=== PATIENT | female | born 1970 | race Caucasian/White ===

== ENCOUNTER → 2018-12-15 | Outpatient (CLI) | payer OTHER, SELFPAY ==
[2016-12-13 10:45] VITALS: BMI 38.4
[2018-12-15 17:31] LABS: Absolute Lymphocyte Count 2.43 X10^3/ul (0.83-4.51); Absolute Neutrophil Count 4.7 X10^3/uL (2.0-7.7); Basophil# 0.02 X10^3/uL; Basophil% 0.3 % (0-1); Eosinophil# 0.11 X10^3/uL; Eosinophils% 1.4 % (0-5); Hematocrit 40.4 % (37-47); Hemoglobin 13.7 g/dl (12.0-15.0); Lymphocyte # 2.43 X10^3/ul (4.0); Lymphocyte % 30.7 % (19-41); Mean Corp Hgb Conc 33.9 g/gl (32-36); Mean Corpuscular Volume 91.4 fL (81-99); Mean Platelet Vol. 10.5 fl (6.2-12.0); Monocyte# 0.63 X10^3/uL; Neutrophil % 59.3 % (47-70); Platelet Count 219 K/mm3 (150-450); RBC Distribution Width CV 12.5 % (11.6-14.6); RBC Distribution Width SD 40.8 fl (35.1-43.9); Red Blood Count 4.42 M/mm3 (4.2-5.4); White Blood Count 7.9 K/mm3 (4.4-11.0)
[2018-12-15 17:34] LABS: POSITIVE COUNT NO; POSITIVE DIFFERENTIAL NO; POSITIVE MORPHOLOGY NO
[2018-12-15 18:07] LABS: ALB/GLOB Ratio 0.9 RATIO (0.9-2.4); AST(SGOT) 17 U/L (15-37); Alanine Aminotransfer ALT/SGPT 26 U/L (13-56); Albumin, Serum 3.6 g/dL (3.2-5.0); Alkaline Phosphatase 77 U/L (45-117); Anion Gap 7 (5-15); BUN 17 mg/dL (7-18); BUN/Creat Ratio 20.4 RATIO (10-20); Calcium,Total 8.8 mg/dL (8.5-10.1); Chloride 105 mmol/L (98-107); Creatinine, Serum 0.84 mg/dL (0.55-1.02); EST Glomerular Filtration Rate 78 mL/min (>60); Est Glom Filt Rate - Afr Amer 94 mL/min (>60); Globulin 3.9 g/dL (2.2-4.2); Glucose 109 mg/dL (74-106); Protein, Total 7.5 g/dL (6.4-8.2); Sodium Level 140 mmol/L (136-145); Thyroid Stim Hormone (TSH) 1.15 uIU/mL (0.358-3.74)
== END | disposition home or self-care (01) ==
LOC: MFPLAB 15:26
PROVIDERS: Family Provider Family Medicine; PCP Family Medicine; Visit Provider Family Medicine
DX: R55 Syncope and collapse (principal); E66.9 Obesity, unspecified
CPT/HCPCS: 36415; 80053; 84443; 85025

== ENCOUNTER → 2019-06-19 11:57 | Outpatient (CLI) | payer OTHER, SELFPAY ==
[2016-12-13 10:45] VITALS: BMI 38.4
[2019-06-19 14:34] LABS: AST(SGOT) 20 U/L (15-37); Alanine Aminotransfer ALT/SGPT 31 U/L (13-56); Albumin, Serum 3.8 g/dL (3.2-5.0); Alkaline Phosphatase 78 U/L (45-117); Anion Gap 4 (5-15); BUN 13 mg/dL (7-18); BUN/Creat Ratio 11.9 RATIO (10-20); Calcium,Total 9.4 mg/dL (8.5-10.1); Chloride 107 mmol/L (98-107); Creatinine, Serum 1.09 mg/dL (0.55-1.02); EST Glomerular Filtration Rate 57 mL/min (>60); Est Glom Filt Rate - Afr Amer 69 mL/min (>60); Glucose 90 mg/dL (74-106); Potassium 4.5 mmol/L (3.5-5.1); Protein, Total 7.8 g/dL (6.4-8.2); Sodium Level 138 mmol/L (136-145)
== END ==
PROVIDERS: Family Provider Family Medicine; PCP Family Medicine; Referring Provider Family Medicine; Visit Provider Family Medicine
DX: L29.9 Pruritus, unspecified (principal)
CPT/HCPCS: 36415; 80053; 82140

== ENCOUNTER → 2019-08-04 | Outpatient (CLI) | payer OTHER, SELFPAY ==
[2019-08-04 14:39] VITALS: BMI 38.4
[2019-08-04 15:48] LABS: Thyroid Stim Hormone (TSH) 1.13 uIU/mL (0.358-3.74)
== END | disposition home or self-care (01) ==
LOC: PAVLAB 15:09
PROVIDERS: PCP Family Medicine; Referring Provider Nurse Practitioner Women's Health; Visit Provider Nurse Practitioner Women's Health
DX: R23.2 Flushing (principal)
CPT/HCPCS: 36415; 84443

== ENCOUNTER → 2019-08-14 | Outpatient (CLI) | payer OTHER, SELFPAY ==
[2019-08-04 14:39] VITALS: BMI 38.4
--- NOTE | 2019-08-14 07:00 | BI_ITS ---
MAMMOGRAPHY - BILATERAL SCREENING REASON FOR EXAM: Female, 49 years old. Routine annual screening examination. PERTINENT HISTORY: Non-contributory. TECHNIQUE: Digital bilateral breast zack (3D mammographic acquisition) in the CC and MLO projections. 2-D mediolateral oblique (MLO) and craniocaudad (CC) views of both breasts were obtained. CAD: Full Field Digital Mammography with Computer Added Detection was performed. COMPARISON: Comparison is made with prior examination dated July 13, 2013. FINDINGS: Breast Composition: The breasts are heterogeneously dense, which may obscure small masses. There are no dominant masses or suspicious calcifications. There is a 1.3 cm x 1.3 cm well-defined nodule in the upper lateral portion of the right breast. This has decreased in size as compared to prior study. Correlation with ultrasound is recommended. No other significant abnormalities are identified. BI/SCREEN MAMM (CAD) W/ZACK BILAT IMPRESSION: Decreased size of the nodular density in the upper-outer quadrant of the right breast. Repeat ultrasound is recommended for further follow-up. ASSESSMENT CATEGORY: BIRADS Category 0: Incomplete. Need additional imaging evaluation. A letter regarding these results will be sent to the patient by the facility within 30 days. Approximately 10% of breast cancers are not detected by mammography. A normal mammogram should not delay biopsy of a clinically suspicious abnormality. [id number] Electronically Signed: Tung Mas, at 10:06 EST , Service support ,
== END | disposition home or self-care (01) ==
PROVIDERS: PCP Family Medicine; Referring Provider Nurse Practitioner Women's Health; Visit Provider Nurse Practitioner Women's Health
DX: Z12.31 Encounter for screening mammogram for malignant neoplasm of breast (principal)
CPT/HCPCS: 77063; 77067

== ENCOUNTER → 2019-08-18 | Outpatient (CLI) | payer OTHER, SELFPAY ==
[2019-08-04 14:39] VITALS: BMI 38.4
--- NOTE | 2019-08-18 10:52 | US_ITS ---
STUDY: ULTRASOUND BREAST - RIGHT REASON FOR EXAM: Female, 49 years old. Abnormal screening mammogram. TECHNIQUE: Axial and longitudinal images of the RIGHT breast were performed with a high resolution ultrasound transducer. # OF IMAGES: 62 COMPARISON: Comparison is made with prior mammogram dated August 14, 2019 and prior ultrasound of the right breast dated July 20, 2013. FINDINGS: RIGHT Breast: 4 cysts are seen at T10-11 and 12:00 radians. These each measure less than 1 cm. There is a 1 cm x 0.9 cm x 1 cm spiculated nodule with posterior shadowing at the 9:00 position of the breast at 6 cm from the nipple. A similar appearing nodular density at the 11:00 position breast at 3 cm from nipple measuring 4 mm x 6 mm x 4 mm is seen as well. Biopsy recommended. US/Breast Limited Unilateral IMPRESSION: Biopsy recommended of 2 suspicious lesion at the 9:00 position of the breast at 6 cm from nipple as well as at the 9:00 position of the breast at 3 cm from nipple. ASSESSMENT CATEGORY: BIRADS Category 4: Suspicious - Biopsy Should Be Considered. A letter regarding these results will be sent to the patient by the facility within 30 days. Electronically Signed: Tung Mas, at 14:45 EDT , Service support ,
== END | disposition home or self-care (01) ==
PROVIDERS: PCP Family Medicine; Referring Provider Nurse Practitioner Women's Health; Visit Provider Nurse Practitioner Women's Health
DX: R92.8 Other abnormal and inconclusive findings on diagnostic imaging of breast (principal)
CPT/HCPCS: 76642

== ENCOUNTER → 2019-08-31 | Outpatient (CLI) | payer OTHER, SELFPAY ==
[2019-08-25 08:03] VITALS: BMI 38.4
--- NOTE | 2019-08-31 09:13 | US_ITS ---
STUDY: ULTRASOUND BREAST - RIGHT REASON FOR EXAM: Female, 49 years old. Ultrasound guided biopsy of the right breast mass. TECHNIQUE: Axial and longitudinal images of the RIGHT breast were performed with a high resolution ultrasound transducer. # OF IMAGES: 32 COMPARISON: Comparison is made with prior ultrasound of the right breast dated August 18, 2019. FINDINGS: RIGHT Breast: Under direct sonographic guidance, the surgeon performed 4 core biopsies of the 1.1 cm x 0.9 cm x 0.9 cm irregular hypoechoic solid nodule at the 9:00 position of the breast at 6 cm from the nipple. US/US Breast Biopsy 1st Lesion IMPRESSION: Successful ultrasound-guided biopsy of the suspicious nodule at the 9:00 position of the breast is 6 cm from the nipple. ASSESSMENT CATEGORY: BIRADS Category 4: Suspicious - Biopsy Should Be Considered. A letter regarding these results will be sent to the patient by the facility within 30 days. Electronically Signed: Tung Mas, at 10:40 EDT , Service support ,
--- NOTE | 2019-08-31 09:30 | BRBX_PTH ---
PATIENT: SESAR CISNEROS LOC: [facility] U#:[id number] AGE/SX: 49/F ROOM: RE08/31/[address]: Dr. Kobe Joseph MD : 1970 BED: DIS: 08/31/2019 SPEC #: [id number] RECD: 08/31/19 10:37 STATUS: ALFRED SURESH #: [id number] ROMÁN: 08/31/19 09:[address]: oKbe Joseph DEPT: SURGICAL PATHOLOGY RECD BY: Juan Borden ENTERED: 08/31/19 11:49 SP TYPE: BREAST BX OTHR DR: Dr. Akash Connell MD Tissues: Right breast, NOS Procedures: Surgery Specimen Level IV HEADER OPERATION: Right breast biopsy PRE-OP DIAGNOSIS: Right breast abnormal ultrasound TISSUE SUBMITTED: Right breast at 9 o'clock, 6 cm from nipple MICROSCOPIC DIAGNOSIS Right breast at 9 o'clock, ultrasound-guided needle core biopsy: Fibrocystic change, nonproliferative. Focal intraductal hyperplasia without atypia. No evidence of malignancy. CATERINA:peggy 09/01/19 MICROSCOPIC DESCRIPTION Slides are reviewed. GROSS DESCRIPTION Received in fixative is one container labeled with the patient's name and designated right breast. The specimen consists of multiple elongated fragments of jackson-yellow fibroadipose tissue that in aggregate measure 2 x 1 x 0.2 cm. The entire specimen is submitted in one cassette. / CATERINA:peggy 08/31/19 TC:5 CPT: 71305
--- NOTE | 2019-08-31 10:11 | PCM.OPRPT ---
Problem List (1) Abnormal mammogram of right breast Status: Acute Report of Operation Date of Procedure: 08/31/19 Pre-Operative Diagnosis: Abnormal mammogram right Post-Operative Diagnosis: Same Surgery/Procedure Performed:: Ultrasound-guided handheld mammotome breast biopsy right Type of Anesthesia:: Local Estimated Blood Loss (mL): < 5 cc Description of Procedure: Patient was in the supine position. Ultrasound at the 9 o'clock position revealed the lesion in question. The breast was prepped with chlorhexidine. 1% lidocaine plain was injected. Local was injected posterior to the lesion using ultrasound guidance. Skin frida was made. Hand-held mammotome needle was placed posterior to the lesion. Numerous biopsies were obtained under ultrasound guidance. Under ultrasound guidance a small titanium clip was placed. Sterile dressings were applied. The patient tolerated the procedure well. - Admit VTE Documentation VTE Present on Admission: No VTE Mechan Device Prophylaxis: None VTE Pharm Prophylaxis ordered?: No Reason prophylaxis not ordered:: Treatment Not Indicated
== END | disposition home or self-care (01) ==
LOC: OPUS 09:10
PROVIDERS: PCP Family Medicine; Referring Provider Surgery; Visit Provider Surgery
DX: R92.8 Other abnormal and inconclusive findings on diagnostic imaging of breast (principal)
CPT/HCPCS: 19083; 88305

== ENCOUNTER → 2020-02-10 08:53 | Outpatient (CLI) | payer OTHER, SELFPAY ==
[2019-08-25 08:03] VITALS: BMI 38.4
--- NOTE | 2020-02-10 08:54 | BI_ITS ---
MAMMOGRAPHY - UNILATERAL DIAGNOSTIC: RIGHT BREAST REASON FOR EXAM: Female, 49 years old. Six-month follow-up for right breast biopsy. PERTINENT HISTORY: Non-contributory. TECHNIQUE: Digital unilateral breast lillian (3D mammographic acquisition) in the CC and MLO projections. 2-D mediolateral oblique (MLO) and craniocaudad (CC) views of both breasts were obtained. CAD: Full Field Digital Mammography with Computer Added Detection was performed. COMPARISON: Comparison is made with prior mammogram dated 08/14/2019 and 07/13/2013. FINDINGS: Breast Composition: The breasts are heterogeneously dense, which may obscure small masses. There are no dominant masses or suspicious calcifications. Since prior study, the patient underwent biopsy with tissue clip marker seen in the upper lateral portion of the right breast. No other significant abnormalities are identified. There has been no significant change since the prior study. BI/DIAG MAMM W/CAD, UNILAT IMPRESSION: Status post right breast biopsy in the superior lateral portion of the right breast. One year follow-up mammogram recommended. (A) ASSESSMENT CATEGORY: BIRADS Category 2: Benign. A letter regarding these results will be sent to the patient by the facility within 30 days. Approximately 10% of breast cancers are not detected by mammography. A normal mammogram should not delay biopsy of a clinically suspicious abnormality. Electronically Signed: Tung Mas, at 10:29 EDT , Service support ,
--- NOTE | 2020-02-10 08:54 | US_ITS ---
STUDY: ULTRASOUND BREAST - RIGHT REASON FOR EXAM: Female, 49 years old. Six-month follow-up for prior breast biopsy. TECHNIQUE: Axial and longitudinal images of the RIGHT breast were performed with a high resolution ultrasound transducer. # OF IMAGES: 13 COMPARISON: Comparison is made with prior mammogram done earlier in the day and prior ultrasound of the right breast dated 08/18/2019. FINDINGS: RIGHT Breast: This is an 8 mm by 8mm by 8mm irregular hypoechoic nodule at the 9 o''clock position of the breast or 6 cm from the nipple. This was previously biopsied. A tissue clip marker is seen. US/Breast Limited Unilateral IMPRESSION: Stable nodular density. Tissue clip marker is seen within it. ASSESSMENT CATEGORY: BIRADS Category 2: Benign. A letter regarding these results will be sent to the patient by the facility within 30 days. Electronically Signed: Tung Mas, at 14:10 EDT , Service support ,
== END ==
PROVIDERS: PCP Family Medicine; Referring Provider Surgery; Visit Provider Surgery
DX: R92.8 Other abnormal and inconclusive findings on diagnostic imaging of breast (principal)
CPT/HCPCS: 76642; 77061; 77065; G0279

== ENCOUNTER → 2020-12-23 15:16 | Outpatient (CLI) | payer OTHER, SELFPAY ==
[2020-10-19 13:38] VITALS: BMI 43.2
[2020-12-23 17:31] LABS: Absolute Lymphocyte Count 2.37 X10^3/uL (0.83-4.51); Absolute Neutrophil Count 4.9 X10^3/uL (2.0-7.7); Basophil# 0.05 X10^3/uL; Basophil% 0.6 % (0-1); Eosinophils% 1.2 % (0-5); Lymphocyte # 2.37 X10^3/ul (0.83-4.51); Lymphocyte % 28.9 % (19-41); Mean Corp Hgb Conc 33.3 g/dL (32-36); Mean Corpuscular Hgb 31.7 pg (27.0-32.0); Mean Platelet Vol. 10.3 fl (6.2-12.0); Monocyte# 0.74 X10^3/uL; NRBC Flagged by Analyzer 0 % (0-5); Neutrophil # 4.93 X10^3/uL (2.7-7.7); Neutrophil % 60.1 % (47-70); Platelet Count 291 K/mm3 (150-450); RBC Distribution Width CV 11.9 % (11.6-14.6); RBC Distribution Width SD 41.5 fl (35.1-43.9); Red Blood Count 4.42 M/mm3 (4.2-5.4); White Blood Count 8.2 K/mm3 (4.4-11.0)
[2020-12-23 17:56] LABS: AST(SGOT) 19 U/L (15-37); Alanine Aminotransfer ALT/SGPT 34 U/L (13-56); Albumin, Serum 3.9 g/dL (3.2-5.0); Alkaline Phosphatase 95 U/L (45-117); Anion Gap 9 (5-15); BUN 13 mg/dL (7-18); BUN/Creat Ratio 13.1 RATIO (10-20); Calcium,Total 9.3 mg/dL (8.5-10.1); Chloride 102 mmol/L (98-107); Creatinine, Serum 0.99 mg/dL (0.55-1.02); EST Glomerular Filtration Rate 63 mL/min (>60); Est Glom Filt Rate - Afr Amer 76 mL/min (>60); Globulin 3.9 g/dL (2.2-4.2); Glucose 86 mg/dL (74-106); Potassium 4.1 mmol/L (3.5-5.1); Protein, Total 7.8 g/dL (6.4-8.2); Sodium Level 138 mmol/L (136-145)
== END ==
PROVIDERS: PCP Family Medicine; Visit Provider Registered Nurse
DX: Z01.818 Encounter for other preprocedural examination (principal)
CPT/HCPCS: 36415; 80053; 85025

== ENCOUNTER → 2021-02-27 07:53 | Outpatient (CLI) | payer OTHER, SELFPAY ==
[2020-10-19 13:38] VITALS: BMI 43.2
--- NOTE | 2021-02-27 07:55 | BI_ITS ---
MAMMOGRAPHY - BILATERAL SCREENING REASON FOR EXAM: Female, 50 years old. Routine annual screening examination. PERTINENT HISTORY: Non-contributory. TECHNIQUE: Digital bilateral breast zack (3D mammographic acquisition) in the CC and MLO projections. 2-D mediolateral oblique (MLO) and craniocaudad (CC) views of both breasts were obtained. CAD: Full Field Digital Mammography with Computer Added Detection was performed. COMPARISON: Comparison is made with prior study 08/14/2019 and 02/10/2020. FINDINGS: Breast Composition: The breasts are heterogeneously dense, which may obscure small masses. There are no dominant masses or suspicious calcifications. Stable asymmetric breast tissue were more breast tissue is seen in the upper outer quadrant of the right breast as compared to the left side. A tissue clip marker is once again seen in the upper lateral aspect of the right breast. No other significant abnormalities are identified. There has been no significant change since the prior study. BI/SCRN MAMM (CAD)W/ZACK BILAT IMPRESSION: Stable bilateral screening mammogram. Yearly follow-up mammogram recommended. (A) ASSESSMENT CATEGORY: BIRADS Category 2: Benign. A letter regarding these results will be sent to the patient by the facility within 30 days. Approximately 10% of breast cancers are not detected by mammography. A normal mammogram should not delay biopsy of a clinically suspicious abnormality. [id number] Electronically Signed: Tung Mas MD at 9:13 EDT , Service support ,
== END ==
PROVIDERS: PCP Family Medicine; Referring Provider Nurse Practitioner Women's Health; Visit Provider Nurse Practitioner Women's Health
DX: Z12.31 Encounter for screening mammogram for malignant neoplasm of breast (principal)
CPT/HCPCS: 77063; 77067

== ENCOUNTER 2021-04-19 13:30 | Outpatient (RCR) | payer OTHER, SELFPAY ==
[2020-10-19 13:38] VITALS: BMI 43.2
--- NOTE | 2020-12-10 12:47 | HP.PTEVAL_ITS ---
Patient's Visit Information SESAR CISNEROS is a 50 year old F referred to Physical Therapy by CLARIBEL BULL with a diagnosis of L Achilles tendonitis, L plantar fascitis. Date of Evaluation: 12/06/20 Physical Therapist: Alexx Machuca DPT - Visit Plan Frequency: 1-2x /Week Duration: 4 Weeks Plan: Pt. is very tender at L achilles tendon. Trial US, light stretching and active ROM. She is wearing a CAM boot on the L foot to calm symptoms. She is potentially having surgery on R achilles later this year. May start to add in strengthening as tolerated, but I do not want to re inflame her achilles as well.. - Subjective Pt. is here today for her initial evaluation with diagnosis of L Achilles tendonitis, plantar fasciitis. Pt. arrives today with reports of having increased L Achilles pain for ~6 weeks. Pt. has had multiple Achilles tendon surgeries (x3 on L, x2 on R). She had a L Achilles tendon rupture on the L side with subsequent repair with use of flexor tendon. Plan is to have R plantar fascia surgery, bone spur removal in December. Doctor wants her L side to be better prior to surgery. She has tried rest, ice and is now wearing a walking boot with heel lift. Pt. believes this injury happened after starting to mow again after the winter. She did not have an exact event, but the accumulation of it. Pt. reports that her L achilles is very sensitive enough to light touch. She has increased pain with standing, walking, pressure to achilles, stairs. Pt. is hopeful to reduce symptoms in L achilles to increase tolerance to walking allowing for RLE surgical intervention. - Pain L Achilles Pain Intensity (Out of 10): 6 Pain Intensity Range: 2, 10 Comment: walking, stairs - Objective POSTURE: Pt. tends to wt. shift to R side in stance, but can stand with B feet plant on floor. PALPATION: pt. is very tender at mid section of L Achilles tendon. Pt. has minimal tenderness at G/S muscle belly. No redness noted at achilles. She does have increased tissue mass at mid achilles tendon, area very tender. NEURO: Pt. has normal sensation to light touch. She has hyper sensitivity at L Achilles tendon. Normal B patellar tendon DTR, painful at achilles therefor did not test. ROM: L ankle: AROM: DF 0deg, PF 35deg, INV 10deg, EVR 20deg. PROM: DF 6deg, PF 40deg, INV 20deg, EVER 20deg. Pt painful with DF and PF. MMT: RLE: ankle: DF 4/5, PF 4/5, INV 4/5, EVR 4/5 (increase NW with PF and INV testing). - Goals Goal 1:: LTG: Pt. to be I with HEP. Goal Time Frame: 2-4 Weeks Goal 2:: STG: Pt. to stand with minimal pain in L achilles. Goal Time Frame: 2 Weeks Goal 3:: LTG: pt. to ambulate with improved gait pattern with 0-2/10 pain in L achilles. Goal Time Frame: 4-6 Weeks Goal 4:: LTG: pt. to have increased L DF ROM to 15deg without increase in symptoms allowing for increased tolerance with walking and stair neogitation. Goal Time Frame: 4-6 Weeks Goal 5:: LTG: Pt. to have increased L DF strength to 4+/5 without increase in symptoms. Goal Time Frame: 4-6 Weeks - Rehabilitation Potential Physical Therapy Diagnosis: Pt. has signs and symptoms consistent with L achilles tendonitis and L plantar fascitis. Pt. also has a potential R achilles tendon tear. She has had multiple surgeries on B achilles. Her achilles is very irritable, even very tender to the touch. She has decreased ROM, decreased tolerance to walking and general mobility along with decreased strength. She w ould benefit from PT to reduce symptoms in an effort to increase tolerance to walking and address the above limitations. Rehabilitation Potential: Fair - Anticipated Interventions Patient/Client Instruction: Educate patient on: Condition, Plan of Care, Risk Factors, Benefits of Fitness Program For the Purpose of:: To foster healthy habits, To improve decision making, To facilitate caregiver knowledge, To improve self management, To prevent re- injury, To improve ability to perform tasks related to life management Therapeutic Exercise to Include: Strength training, Power training, Postural training, Flexibilty training, Gait and locomotor training, Passive ROM, Active ROM For the Purpose of:: To decrease pain, To increase ROM, To improve nutrient delivery to tissue, To increase oxygenation perfusion, To improve muscle performance and motor function, To improve ability to perform ADL's, To improve ability of physical actions for home/community/work/leisure, To improve gait and locomotor functions, To improve health of tissue, To decrease soft tissue restriction, To increase flexibility/ROM Manual Therapy Techniques to Include: Mobilization, Passive ROM, Functional dry needling, Soft tissue mobilization For the Purpose of:: To decrease pain, To decrease swelling/inflammation, To increase ROM, To improve nutrient delivery to tissue, To increase oxygenation perfusion, To improve muscle performance and motor function TENS: Yes Cryotherapy (ice pack, ice massage): Yes Vasopneumatic device: Yes For the Purpose of:: To decrease pain, To decrease swelling/inflammation, To increase ROM Thank you for the opportunity to evaluate your patient. For Medicare and Medicare HMO plans, please review the plan of care and approve it. It will need to be FAXED BACK to us at [phone] for Medicare purposes. For Medicare only, by signing this I certify the plan of care. Please let me know if there are questions or concerns regarding this plan of care. Physician Signature: Date:
--- NOTE | 2021-02-14 13:10 | HP.PTREVAL_ITS ---
CLARIBEL BULL, It has been my pleasure to treat SESAR CISNEROS over the last 4 visits for R achilles tendon repair, use of flexor tendon and shaving calcaneal spur. Please see the progress note below for an update on the physical therapy plan of care! Subjective: Pt. is back today after having surgery in end of December for achilles tendon repair, use of flexor tendon and shaving down calcaneal spur. Pt. was initially in a cast, but is now is a CAM walking boot with 2 wedges. She has been working on toe flexion/extension as tolerated and walking to tolerance. Pt. reports doing well in AMs, but gets more sore as the day progresses. Pt. reports 2/10 pain currently, upto 5/10 pain by the end of day. Objective/Function: R ankle measurement. ROM: R ankle: PF 40deg, DF lacking 6deg to netural; INV- 12deg, EVR- 14deg. Normal knee ROM. MMT: ankle INV/EVR 4/5 bilat, did not test PF/DF. Knee 5/5 throughout. GAIT: Pt. ambulates with CAM boot + 2 wedges on R side and L shoe riser. Pt. has decreased L step length, decreased R stance time. Normal sensation throughout R ankle/heel, slight hyper sensitivity near incision. Incision seems to be well healed. No signs of infection. Plan Plan: We had been treating her L Achilles prior to having R Achilles tendon surgery. She has now had surgery and is treated to be treated on the R side. Start to remove 1 wedge every week starting this week as tolerated. Pt. to ambulate and stop at pain. Slowly increase DF mobility as tolerated. Pt. p rogress as tolerated. Add in slowly progressing gait tolerance and able. Balance/Gait/Functional tests - Balance/Special Test Scores Lower Extremity Functional Score: 28 Goals Goal 1:: LTG: Pt. to be I with HEP. Goal Time Frame: 2-4 Weeks Goal 2:: STG: Pt. to stand with minimal pain in L achilles. NEW GOAL(02/14/21): Pt. to tolerate walking with CAM boot without riser without increase in symptoms. Goal Time Frame: 2 Weeks Goal Progress: Progressing Goal 3:: LTG: Pt. to ambulate without pain without CAM boot for unlimited distances. Goal Time Frame: 4-6 Weeks Goal 4:: LTG: pt. to have increased R DF ROM to 15deg without increase in symptoms allowing for increased tolerance with walking and stair negotiation. Goal Time Frame: 4-6 Weeks Goal 5:: LTG: Pt. to have increased R ankle strength to 4+/5 without increase in symptoms. Goal Time Frame: 4-6 Weeks Goal Progress: Progressing Anticipated Interventions Patient/Client Instruction: Educate patient on: Condition, Plan of Care, Risk Factors, Benefits of Fitness Program For the Purpose of:: To foster healthy habits, To improve decision making, To facilitate caregiver knowledge, To improve self management, To prevent re- injury, To improve ability to perform tasks related to life management Therapeutic Exercise to Include: Strength training, Power training, Postural training, Flexibilty training, Gait and locomotor training, Passive ROM, Active ROM For the Purpose of:: To decrease pain, To increase ROM, To improve nutrient delivery to tissue, To increase oxygenation perfusion, To improve muscle performance and motor function, To improve ability to perform ADL's, To improve ability of physical actions for home/community/work/leisure, To improve gait and locomotor functions, To improve health of tissue, To decrease soft tissue restriction, To increase flexibility/ROM Manual Therapy Techniques to Include: Mobilization, Passive ROM, Functional dry needling, Soft tissue mobilization For the Purpose of:: To decrease pain, To decrease swelling/inflammation, To increase ROM, To improve nutrient delivery to tissue, To increase oxygenation perfusion, To improve muscle performance and motor function TENS: Yes Cryotherapy (ice pack, ice massage): Yes Vasopneumatic device: Yes For the Purpose of:: To decrease pain, To decrease swelling/inflammation, To increase ROM Please do not hesitate to contact me at [phone] by phone or if you have questions or concerns regarding this new plan of care! Sincerely, Alexx Machuca DPT
--- NOTE | 2021-04-19 14:32 | HP.PTDCSUM_ITS ---
It has been my pleasure to treat SESAR CISNEROS referred by CLARIBEL BULL, with the diagnosis of R achilles tendon repair, use of flexor tendon and shaving calcaneal spur for a total of 15 visit(s). Discharge Date: 04/19/21 Please see the following information for a summary of their discharge status. Subjective: Pt reports she has days where her achilles is really tight, but she states she is able to loosen it up pretty well. L Achilles Pain Intensity (Out of 10): 0 R achilles Pain Intensity (Out of 10): 0 % Improvement: 90 Objective/Function: ROM: R DF: AROM 13 degrees, PROM 20 degrees. R ankle Strength : DF 5, PF 5, Inversion 4+, Eversion 5. gait; Normal gait pattern, slight everted positioning, but no pain noted. STAIRS: slight difficulty with descending due to early heel off, but is improving. Pt strength and ROM improved. All goals near met. Goal 1:: LTG: Pt. to be I with [facility]. Goal Progress: Goal Met Goal 2:: STG: Pt. to stand with minimal pain in L achilles. NEW GOAL(02/14/21): Pt. to tolerate walking with CAM boot without riser without increase in symptoms. Goal Progress: Goal Met Goal 3:: LTG: Pt. to ambulate without pain without CAM boot for unlimited distances. Goal Progress: Goal Met Goal 4:: LTG: pt. to have increased R DF ROM to 15deg without increase in symptoms allowing for increased tolerance with walking and stair negotiation. Goal Progress: Progressing Goal 5:: LTG: Pt. to have increased R ankle strength to 4+/5 without increase in symptoms. Goal Progress: Goal Met Plan: D/C PT Discharge Comments: Pt. was seen for her R Achilles tendon repair. She was seen for stretching, and eventually strengthening. She is doing vey well and is independent with strengthening program. She is to has her L Achilles tendon repaired next month. Pt. will be DC to [facility] at this point in time. If there are questions or concerns regarding this patient's physical therapy, please feel free to call me at [phone]. Thank you for the referral of this patient. Sincerely, Alexx Sylvester Sipos, DPT Balance/Gait/Functional tests - Balance/Special Test Scores Lower Extremity Functional Score: 66
== END 2021-04-19 19:00 | disposition home or self-care (01) ==
LOC: PT 13:30
PROVIDERS: PCP Family Medicine
DX: M76.62 Achilles tendinitis, left leg (principal); M72.2 Plantar fascial fibromatosis
CPT/HCPCS: 97035; 97110; 97140; 97161; 97164

== ENCOUNTER 2021-09-06 10:08 | Outpatient (CLI) | payer OTHER, SELFPAY ==
[2021-09-06 12:35] LABS: Progesterone Level 0.23 ng/mL (See Comment); Vitamin B12 561 pg/mL (211-911)
[2021-09-06 13:51] LABS: Anion Gap 7 (5-15); BUN 14 mg/dL (7-18); BUN/Creat Ratio 17.9 RATIO (10-20); Calcium,Total 9.5 mg/dL (8.5-10.1); Chloride 104 mmol/L (98-107); Cholesterol 191 mg/dL (200); Creatinine, Serum 0.78 mg/dL (0.55-1.02); EST Glomerular Filtration Rate 82 mL/min (>60); Est Glom Filt Rate - Afr Amer 100 mL/min (>60); Follicle Stimulating Hormone 11.3 mIU/mL; Glucose 94 mg/dL (74-106); High Density Lipoprotein 67 mg/dL; Luteinizing Hormone 5.5 mIU/mL; Potassium 3.9 mmol/L (3.5-5.1); Sodium Level 137 mmol/L (136-145); Triglycerides 174 mg/dL; Very Low Density Lipoprotein 35 mg/dL (5-40)
[2021-09-08 21:50] LABS: Estrogen, Total, Serum 463 pg/mL (.)
== END 2021-09-06 23:59 | disposition home or self-care (01) ==
LOC: MTLAB 10:10
PROVIDERS: PCP Family Medicine; Referring Provider Family Medicine; Visit Provider Family Medicine
DX: Z00.00 Encounter for general adult medical examination without abnormal findings (principal); E66.9 Obesity, unspecified; U09.9 Post COVID-19 condition, unspecified
CPT/HCPCS: 36415; 80048; 80061; 82306; 82533; 82607; 82672; 82746; 83001; 83002; 84144; 84403; 84443; 86141

== ENCOUNTER 2021-10-31 21:25 | Emergency (ER) | payer OTHER, SELFPAY ==
[2021-10-31 21:26] VITALS: BP 121/110; PULSE 87; RESP 24; TEMP 36.6; O2SAT 99; BMI 41.5
--- NOTE | 2021-10-31 21:38 | EDS_ITS ---
HPI History of Present Illness Chief Complaint: Nausea/Vomiting Informant: patient and spouse/S.O. Narrative Narrative: Patient has chief complaint of nausea and vomiting. Patient has a colonoscopy scheduled for the morning. This was a routine follow- up colonoscopy due to a history of polyps. She has not been having any issues. She was taking Dulcolax and then MiraLAX as her bowel prep. She took the Dulcolax and had no symptoms with this. She had never had MiraLAX before. The first time she took it she got very nauseated and its cause some mild epigastric cramping. They contacted somebody who said this will sometimes happen. If it comes down in 30 minutes they can continue to take more MiraLAX. They waited an hour. The symptoms seem to calm down so they took MiraLAX again. As soon as she took it she started with nausea vomiting and epigastric cramping again. She had not been having any of the symptoms prior to taking MiraLAX. She is not having diarrhea. No fevers chills. No urinary symptoms. No blood in the vomitus. No chest pain or trouble breathing. MiraLAX makes it worse and nothing makes it better but she does not have anything to control the nausea. They contacted the on-call physician regarding the colonoscopy. They stated they could show up early and have an enema to help in the morning. [facility] Medical History Alcohol use Anxiety Bladder prolapse Dislocation of left elbow Hemorrhoid History of edema Hormone replacement therapy (HRT) Non-smoker RUCHI (obstructive sleep apnea) Rectal prolapse Vertigo Wears glasses Home Medications cetirizine 10 mg tablet 10 mg PO DAILY 08/04/19 [History Last Taken Unknown] naltrexone 8 mg-bupropion 90 mg tablet,extended release 2 tab PO BID tab 10/19/20 [History Last Taken Unknown] estradiol 1 mg tablet 1 mg PO QDAY #90 tab 10/23/21 [Rx Last Taken Unknown] ondansetron 4 mg PO Q8H PRN #10 tab 10/31/21 [Rx Last Taken Unknown] promethazine 25 mg PO Q6H PRN #10 tab 10/31/21 [Rx Last Taken Unknown] Allergy/AdvReac Type Severity Reaction Status Date / Time adhesive Allergy Rash Verified 10/31/21 21:29 erythromycin lactobionate Allergy Vomiting Verified 10/31/21 21:29 [From Erythrocin] polyethylene glycol 3350 Allergy Vomiting Verified 10/31/21 21:35 [From Miralax] meloxicam [From Mobic] AdvReac Severe Vomiting Verified 10/31/21 21:29 seasonal allergies Allergy Intermediate Other Uncoded 10/31/21 21:29 Family History Father Hypertension Uncle Cancer prostate Other Glaucoma Surgical History Hx of Achilles tendon repair Hx of colonoscopy s/p ankle surgery S/P arthroscopy of right shoulder S/P cholecystectomy S/P partial hysterectomy s/p right ankle surgery S/P tonsillectomy Status post left foot surgery Social History Smoking Status: Never smoker alcohol intake: current details: occasionally substance use type: does not use what type of physical activity do you participate in: none seatbelt use: always do you feel safe at home: Yes 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 ROS ROS ED Constitutional Constitutional ED: Denies chills or fever(s) Eyes Eyes: Denies blurry vision ENT ENT ED: Denies rhinorrhea or sore throat Cardiovascular Cardiovascular: Denies chest pain Respiratory/Chest Respiratory/Chest: Denies cough or dyspnea Gastrointestinal Gastrointestinal: Reports abdominal pain, nausea and vomiting; Denies constipation, diarrhea or melena Genitourinary Genitourinary ED: Denies dysuria Musculoskeletal Musculoskeletal: Denies myalgias Integumentary Denies rash Neurologic Neurologic: Denies headache(s) Endocrine Endocrinology: Denies polydipsia or polyuria Allergic/Immunologic Allergic/Immunologic ED: Denies urticaria EXAM Physical Exam Const Vital Signs: 10/31/21 21:26 Temperature 98 F Temperature Source Temporal Pulse Rate 87 Respiratory Rate 24 H Blood Pressure 121/110 H Blood Pressure Mean 113 Pulse Ox 99 Oxygen Delivery Method Room Air Patient is sitting in bed holding an emesis bag. No vomitus is actually in there at this moment. Positive well nourished and well developed General Appearance ED: well developed; Negative for cyanotic or diaphoretic HEENT Reports moist mucous membranes Negative for trauma or tenderness Eyes General Eye ED: Negative for pale conjunctiva or scleral icterus Neck no JVD Chest Wall inspection of chest normal Resp normal respiratory effort and clear to auscultation bilaterally Auscultation: Negative for rales, rhonchi or wheezes Cardio regular rate, regular rhythm and no murmurs GI normal to inspection, nondistended, normoactive bowel sounds and non-tender GI Narrative: Patient has some epigastric and left upper quadrant area discomf ort but there is no actual tenderness on exam. There is no rebound or guarding. Bowel sounds actually sound normal. They are not increased or decreased. Palpation: soft Back/Spine no CVA tenderness Extremity normal to inspection General Extremety ED: Negative for edema or tenderness General Extremity: Negative for edema Neuro Sensorium / Orientation: alert Psych mental status grossly normal Skin no rashes or lesions noted and no wounds MDM MDM MDM Narrative Medical decision making narrative: Patient was checked after some fluids and Zofran. She was a little better but she still felt very nauseated. She was not having pain or cramping no. I then gave her some Phenergan. That helped remarkably well. She states she finally feels good. She would like to go home. Her CBC showed minimal elevation of white count but otherwise negative. Electrolytes liver function test lipase were essentially normal other than minimal elevation of the glucose at 121. Abdominal series showed no acute proce ss. I will write for some Zofran and Phenergan in case she has issues. We discussed reasons to return. She will contact her physician in the morning regarding colonoscopy to see if they would still like to continue. Lab Data Attestation: I reviewed the patient's lab results. Labs: Laboratory Results - last 24 hr 10/31/21 10/31/21 21:40 21:40 WBC 13.2 H RBC 4.68 Hgb 14.8 Hct 42.8 MCV 91.5 MCH 31.6 MCHC 34.6 RDW Std Deviation 40.7 RDW Coeff of Gómez 12.2 Plt Count 296 MPV 9.8 Immature Gran % (Auto) 0.500 Neut % (Auto) 74.8 H Lymph % (Auto) 16.8 L [place] % (Auto) 6.8 Eos % (Auto) 0.6 Baso % (Auto) 0.5 Absolute Neuts (auto) 9.8 H Absolute Lymphs (auto) 2.21 Nucleated RBC % 0 Sodium 136 Potassium 4.0 Chloride 104 Carbon Dioxide 22.0 Anion Gap 10 BUN 13 Creatinine 0.97 Estim Creat Clear Calc 62.44 Est GFR (MDRD) Af Amer 78 Est GFR (MDRD) Non-Af 64 BUN/Creatinine Ratio 13.4 Glucose 121 H Calcium 9.8 Total Bilirubin 0.80 AST 19 ALT 31 Alkaline Phosphatase 91 Total Protein 8.5 H Albumin 4.2 Globulin 4.3 H Albumin/Globulin Ratio 1.0 Lipase 73 Radiography Diagnostic Testing: Clinical Impression(s) from Imaging Studies Acute Abdomen Series 10/31/21 22:41 IMPRESSION: Negative chest and abdominal series. Electronically Signed: Chano Pavon DO at 23:15 EDT , Discharge Plan Triage Chief Complaint: Nausea/Vomiting ED Provider: Nathan Nelson Dx/Rx/DC Orders Clinical Impression: Nausea & vomiting, Medication reaction Instructions: ED Drug Reaction, Other, ED Vomiting (Adult) Prescriptions: New ondansetron 4 mg tablet,disintegrating 4 mg PO Q8H PRN (Reason: nausea and vomiting) Qty: 10 RF: 0 promethazine 25 mg tablet 25 mg PO Q6H PRN (Reason: nausea and vomiting) Qty: 10 RF: 0 No Action cetirizine [Zyrtec] 10 mg tablet 10 mg PO DAILY RF: 0 Contrave 8-90 mg tablet extended release 2 tab PO BID RF: 0 estradiol [Estrace] 1 mg tablet 1 mg PO QDAY Qty: 90 RF: 4 Primary Care Provider: Akash Connell Referrals: Akash Connell MD [Primary Care Provider] - As Needed Disposition Disposition: Home, Self Care
[2021-10-31 21:48] LABS: Absolute Lymphocyte Count 2.21 X10^3/uL (0.83-4.51); Absolute Neutrophil Count 9.8 X10^3/uL (2.0-7.7); Basophil# 0.07 X10^3/uL; Basophil% 0.5 % (0-1); Eosinophil# 0.08 X10^3/uL; Eosinophils% 0.6 % (0-5); Hematocrit 42.8 % (37-47); Hemoglobin 14.8 g/dL (12.0-15.0); Lymphocyte # 2.21 X10^3/ul (0.83-4.51); Lymphocyte % 16.8 % (19-41); Mean Corp Hgb Conc 34.6 g/dL (32-36); Mean Corpuscular Hgb 31.6 pg (27.0-32.0); Mean Corpuscular Volume 91.5 fL (81-99); Mean Platelet Vol. 9.8 fl (6.2-12.0); Monocyte# 0.89 X10^3/uL; Monocyte% 6.8 % (0-10); NRBC Flagged by Analyzer 0 % (0-5); Neutrophil # 9.84 X10^3/uL (2.7-7.7); Neutrophil % 74.8 % (47-70); Platelet Count 296 K/mm3 (150-450); RBC Distribution Width CV 12.2 % (11.6-14.6); RBC Distribution Width SD 40.7 fl (35.1-43.9); Red Blood Count 4.68 M/mm3 (4.2-5.4); White Blood Count 13.2 K/mm3 (4.4-11.0)
[2021-10-31] MEDS: 0.9% Normal Saline 1,000 ML 1000 ML IV (21:48)
[2021-10-31] MEDS: Ondansetron 4 MG/2 ML Vial IV (21:48)
[2021-10-31 22:09] LABS: AST(SGOT) 19 U/L (15-37); Alanine Aminotransfer ALT/SGPT 31 U/L (13-56); Albumin, Serum 4.2 g/dL (3.2-5.0); Alkaline Phosphatase 91 U/L (45-117); Anion Gap 10 (5-15); BUN 13 mg/dL (7-18); BUN/Creat Ratio 13.4 RATIO (10-20); Calcium,Total 9.8 mg/dL (8.5-10.1); Chloride 104 mmol/L (98-107); Creatinine, Serum 0.97 mg/dL (0.55-1.02); EST Glomerular Filtration Rate 64 mL/min (>60); Est Glom Filt Rate - Afr Amer 78 mL/min (>60); Estimated Creatinine Clearance 62.44 ml/min; Globulin 4.3 g/dL (2.2-4.2); Glucose 121 mg/dL (74-106); Lipase 73 U/L (73-393); Protein, Total 8.5 g/dL (6.4-8.2); Sodium Level 136 mmol/L (136-145)
--- NOTE | 2021-10-31 22:41 | RAD_ITS ---
INDICATION: Pain EXAMINATION/TECHNIQUE: X-RAY - XR Abdomen Series W/ Chest 1 View COMPARISON: CT abdomen and pelvis 10/07/2013. FINDINGS: --Chest: LINES/DEVICES: None. LUNGS: No consolidation, edema or effusion. No pneumothorax. MEDIASTINUM AND CARDIOVASCULAR STRUCTURES: Cardiac silhouette not enlarged. Central airways and mediastinal contour are unremarkable. BONES AND SOFT TISSUES: No acute findings. --Abdomen: BOWEL GAS PATTERN: No abnormally distended air-filled bowel loops. No air-fluid levels suggested. FREE AIR: None visualized. ORGANOMEGALY: Not seen. CALCIFICATIONS: No abnormal calcifications observed. BONES AND SOFT TISSUES: Note of surgical clips right upper quadrant from prior cholecystectomy. There is transitional anatomy with lumbarization of S1. RAD/Acute Abdomen Inc Chest IMPRESSION: Negative chest and abdominal series. Electronically Signed: Chano Pavon DO at 23:15 EDT ,
[2021-10-31] MEDS: proMETHazine 25 MG/ML Syringe 12.5 MG IM (22:55)
[2021-10-31 23:48] VITALS: BP 124/69; PULSE 72; RESP 15; O2SAT 97
== END 2021-10-31 23:49 | disposition home or self-care (01) ==
PROVIDERS: Emergency Provider Emergency Medicine; PCP Family Medicine; Visit Provider Emergency Medicine
DX: R11.2 Nausea with vomiting, unspecified (principal); T50.995A Adverse effect of other drugs, medicaments and biological substances, initial encounter; F41.9 Anxiety disorder, unspecified; G47.33 Obstructive sleep apnea (adult) (pediatric); Z79.899 Other long term (current) drug therapy; R10.13 Epigastric pain; Z86.010 Personal history of colon polyps; Z90.49 Acquired absence of other specified parts of digestive tract
CPT/HCPCS: 74022; 80053; 83690; 85025; 96361; 96372; 96374; 99283; J7030; A4216; J2405

== ENCOUNTER 2021-12-20 08:04 | Day surgery (SDC) | payer OTHER, SELFPAY ==
[2021-12-20] VITALS (7 sets, daily range): BP systolic 94–139; BP diastolic 69–89; PULSE 61–77; RESP 14–18; TEMP 36.4–36.6; O2SAT 92–98; BMI 42.7
[2021-12-20] MEDS: Lactated Ringers 1,000 ML 15 ML IV (08:28)
--- NOTE | 2021-12-20 08:34 | H&P.OPEN ---
HPI - General HPI Narrative SESAR CISNEROS, is a 51 F who presents for for screening colonoscopy. Patient's had multiple colonoscopies in the past as she initially had polyps at 20 years old. Patient states been 10 years since the last 1 and all have been within normal limits since the first. Patient denies any current abdominal pain/nausea/vomiting/reflux. Patient has bowel movements daily denies any blood. ON LICENSE OF [facility] Medical History Alcohol use Anxiety Bladder prolapse Dislocation of left elbow Hemorrhoid History of edema Hormone replacement therapy (HRT) Non-smoker RUCHI (obstructive sleep apnea) Rectal prolapse Vertigo Wears glasses Home Medications cetirizine 10 mg tablet (Zyrtec) 10 mg PO DAILY 08/04/19 [History Last Taken Unknown] naltrexone 8 mg-bupropion 90 mg tablet,extended release (Contrave) 2 tab PO BID 10/19/20 [History Last Taken Unknown] estradiol 1 mg tablet (Estrace) 1 mg PO QDAY #90 tabs 10/23/21 [Rx Last Taken Unknown] Allergy/AdvReac Type Severity Reaction Status Date / Time adhesive Allergy Rash Verified 10/31/21 21:29 erythromycin lactobionate Allergy Vomiting Verified 10/31/21 21:29 [From Erythrocin] polyethylene glycol 3350 Allergy Vomiting Verified 10/31/21 21:35 [From Miralax] meloxicam [From Mobic] AdvReac Severe Vomiting Verified 10/31/21 21:29 seasonal allergies Allergy Intermediate Other Uncoded 10/31/21 21:29 Family History Father Hypertension Uncle Cancer prostate Other Glaucoma Surgical History Hx of Achilles tendon repair Hx of colonoscopy s/p ankle surgery S/P arthroscopy of right shoulder S/P cholecystectomy S/P partial hysterectomy s/p right ankle surgery S/P tonsillectomy Status post left foot surgery Social History Smoking Status: Never smoker alcohol intake: current details: occasionally substance use type: does not use what type of physical activity do you participate in: none seatbelt use: always do you feel safe at home: Yes 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 Past Medical/Surgical History Planned Operation Planned Operative Procedure/s: CSCOPE OA S.O.S: No Previous Hospitalizations/Surgeries HX Hospitalizations: No HX of Surgeries: T&A GALLBLADDER R AC JOINT SHOULDER DISLOCATED R ACHILLES TENDON LENGTHENING X2 L ACHILLES TENDON REPAIR AND LENGTHENING X3 FALLOPIAN TUBES REMOVED 09/2016 Any Problems With Anesthesia: Yes (VIOLENT NAUSEA AND VOMITING/STATES VERY SENSITIVE TO ANESTHESIA) You/Your Family Experience Fever (Hyperthermia) With Anes: No Cholinesterase deficiency: No Cardiovascular Hx Chest Pain within Last 2 months: No Hx of Irregular Heartbeat and/or Afib: No Hx Heart Attack: No Hx Congestive Heart Failure: No Hx Rheumatic Fever: No Hx Hypertension: No Hx Internal Defibrillator: No Hx Pacemaker: No Hx Cardiac Catheterization: No Hx Cardiac Surgery/Stents/Etc.: No Hx Stress Test: No Hx Pain in Legs when Walking/Leg Cramps: No Respiratory Chronic Cough: No HX of Shortness of Breath: No (ABLE TO WALK 2 FLIGHTS OF STAIRS WITHOUT SOB) Hoarseness: No Hx Chronic Obstructive Pulmonary Disease (COPD): No Hx Asthma: No Hx Emphysema: No Hx Sleep Apnea: No CPAP: No BIPAP: Yes Hx Respiratory Tract Infection/Cold (presently): No Do You Snore Loudly (louder than talking or can be heard): Yes Do You Often Feel Tired/ Fatigued/ Sleepy Dring Daytime?: No Has Anyone Observed You Stop Breathing During Sleep?: No Result (for STOP score): Negative Hx Smoking: No Smoking Status: Never smoker Gastrointestinal Hx Gastroesophageal Reflux: No Hx Gastrointestinal Disorders: No Hx Gastrointestinal Bleed: No Hx Ulcer: No Hx Hiatal Hernia: No Difficulty Chewing/Swallowing: No Special diet followed at home: No Hx Unplanned Weight Loss of 20#: No HX Unplanned Weight Gain of 20#: No Neurological Hx Seizures: No HX Syncope/Blackout Spells/Unconsciousness: No Hx Transient Ischemic Attacks (TIA): No Hx Multiple Sclerosis: No Hx Parkinson's Disease: No Hx Head/Neck Injury: No Hx Headaches: No Hx Back Injury/Pain: No Recent Onset of Speech Difficulty: No Restless Legs: No Does patient have nerve stimulator: No Blood Disorder Hx Leukemia: No Bleeding Tendencies: No Hx Deep Vein Thrombosis: No Hx High Cholesterol: No Blood Transmitted Disease: No Hx Hepatitis: No Hx Cirrhosis: No Hx Anemia: No Hx Blood Disorders: No Reproduction : No Hx Hysterectomy: No Hx Tubal Ligation: No Are You Post Menopause: No Genitourinary Hx Renal Disease: No Hx Dialysis: No Musculoskeletal Hx Arthritis: No Hx Rheumatoid Arthritis: No Hx Gout: No Recent Onset of an Orthopedic Problem: No Endocrine Hx Diabetes: No Thyroid Disease: No Hx Steroid Therapy: No Psycho/Social Hx Substance Use: No Hx Alcohol Use: No Hx Anxiety: No Hx Depression: No Mental Illness: No Hx Dementia: No Miscellaneous Hx Cancer: No Recent Exposure to Contagious Disease: No Hx of C-Diff: No Any Loose Teeth: No (PERMANENT RETAINER INSIDE BOTTOM LOWER TEETH) Allergies adhesive Allergy (Verified 10/31/21 21:29) Rash erythromycin lactobionate [From Erythrocin] Allergy (Verified 10/31/21 21:29) Vomiting polyethylene glycol 3350 [From Miralax] Allergy (Verified 10/31/21 21:35) Vomiting meloxicam [From Mobic] Adverse Reaction (Severe, Verified 10/31/21 21:29) Vomiting seasonal allergies Allergy (Intermediate, Uncoded 10/31/21 21:29) Other Maternal: Family History Father Hypertension Uncle Cancer Other Glaucoma - (multiple family members with vertigo,psoriasis) Paternal: Family History Father Hypertension Uncle Cancer Other Glaucoma - (many people live to an older age on father side) Discharge Is Pt Admitted From a Penitentiary, or a Jail: No After D/C, Where Do you Plan to Go: Return Home Vital Signs Vital Signs Vital Signs: 12/20/21 08:24 12/20/21 08:24 Temperature 97.8 F Temperature Source Temporal Pulse Rate 77 Respiratory Rate 18 Respiratory Pattern Normal Blood Pressure 139/83 H Blood Pressure Mean 101 Blood Pressure Source Monitor Blood Pressure Position Semi-Fowlers Blood Pressure Location Left Arm Pulse Ox 98 Oxygen Delivery Method Room Air Weight Weight: 257 lb Body Mass Index (BMI) 42.7 Physical Exam Const alert, oriented x3 and no apparent distress HEENT normocephalic and head/scalp atraumatic Resp normal respiratory effort Cardio regular rate GI soft to palpation and non-tender; Negative for non-distended Palpation: Negative for guarding Extremity no clubbing, cyanosis or edema Neuro CN's II-XII intact bilaterally Psych mental status grossly normal Assessment & Plan Assessment/Plan (1) Encounter for screening for malignant neoplasm of colon: Procedure Criteria Type of Procedure Procedure Type: Elective Elective Risks - COVID COVID Risk Discussion: The surgeon/proceduralist and patient have discussed in detail the risk of exposure to and/or potential harm posed by the COVID-19 virus with having a surgery/procedure at this time versus the risk of delaying the surgery/procedure. It is not possible to know either the risk of delaying the surgery or procedure or chance of getting an infection with perfect accuracy, but a joint decision was made between the patient and the surgeon/proceduralist to proceed at this time with the scheduled surgery/procedure as indicated on the consent form. Surgery Risks - Colonoscopy Risks Include but are not Limited To: Risks include but are not limited to: Bleeding, perforation requiring further surgery, inability to complete colonoscopy requiring barium enema.
--- NOTE | 2021-12-20 09:57 | OP.CCLET_ITS ---
12/20/2021 Akash Connell MD [address] [id number] Re : Colonoscopy procedure for Rochelle Kruegerner Dear Dr. Connell This procedure was performed on Monday, December 20, 2021. My impressions and recommendations are as follows: Impressions : - The entire examined colon is normal. - No specimens collected. Recommendations : - Discharge patient to home. - Resume previous diet. - Continue present medications. - Repeat colonoscopy in 10 years for screening purposes. My findings are described in the full procedure note, which is enclosed. If I can be of further assistance, please feel free to contact me at Doctor phone number(s): , Work: . Sincerely, MD Bethany Kern MD 12/20/2021 9:56:58 AM This report has been signed electronically.
--- NOTE | 2021-12-20 09:57 | OP.COLON_ITS ---
Patient Name: Rochelle Gambino Procedure Date: 12/20/2021 9:16 AM Date of : 1970 Age: 51 Procedure: Colonoscopy Indications: Screening for colorectal malignant neoplasm Providers: Bethany Rodriges MD Referring MD: Akash Connell MD Medicines: Monitored Anesthesia Care Patient Profile: This is a 51 year old female. Last Colonoscopy: 10 years ago. Complications: No immediate complications. Procedure: Pre-Anesthesia Assessment: - Prior to the procedure, a History and Physical was performed, and patient medications and allergies were reviewed. The patient's tolerance of previous anesthesia was also reviewed. The risks and benefits of the procedure and the sedation options and risks were discussed with the patient. All questions were answered, and informed consent was obtained. Prior Anticoagulants: The patient has taken no previous anticoagulant or antiplatelet agents. ASA Grade Assessment: Per anesthesia. After reviewing the risks and benefits, the patient was deemed in satisfactory condition to undergo the procedure. After I obtained informed consent, the scope was passed under direct vision. Throughout the procedure, the patient's blood pressure, pulse, and oxygen saturations were monitored continuously. The pediatric colonoscope was introduced through the anus and advanced to the cecum, identified by the appendiceal orifice, ileocecal valve and palpation. The colonoscopy was performed without difficulty. The patient tolerated the procedure well. The quality of the bowel preparation was good. Scope In: 9:25:15 AM Scope Withdrawal Time 0 hours 15 minutes 0 seconds Scope Out: 9:47:08 AM Total Procedure Duration Time 0 hours 21 minutes 53 seconds Findings: The entire examined colon appeared normal. The perianal and digital rectal examinations were normal. Impression: - The entire examined colon is normal. - No specimens collected. Recommendation: - Discharge patient to home. - Resume previous diet. - Continue present medications. - Repeat colonoscopy in 10 years for screening purposes. Procedure Code(s): --- Professional --- G0121, Colorectal cancer screening; colonoscopy on individual not meeting criteria for high risk Diagnosis Code(s): --- Professional --- Z12.11, Encounter for screening for malignant neoplasm of colon CPT copyright 2017 [employer] [place] [employer]. All rights reserved. The codes documented in this report are preliminary and upon journalism teacher review may be revised to meet current compliance requirements. MD Bethany Kern MD 12/20/2021 9:56:58 AM This report has been signed electronically. Number of Addenda: 0 Note Initiated On: 12/20/2021 9:16 AM
== END 2021-12-20 10:47 | disposition home or self-care (01) ==
LOC: EN 08:06 → AC 08:10
PROVIDERS: PCP Family Medicine; Referring Provider Family Medicine; Visit Provider Surgery
PROC: 0DJD8ZZ Inspection of Lower Intestinal Tract, Via Natural or Artificial Opening Endoscopic (ICD-10-PCS; CPT 45378; principal; 2021-12-20 09:25)
DX: Z12.11 Encounter for screening for malignant neoplasm of colon (principal); G47.33 Obstructive sleep apnea (adult) (pediatric)
CPT/HCPCS: 45378; J7120; J2405

== ENCOUNTER → 2022-10-31 | Outpatient (CLI) | payer OTHER, SELFPAY ==
--- NOTE | 2022-10-31 08:00 | BI_ITS ---
MAMMOGRAPHY - BILATERAL SCREENING REASON FOR EXAM: Female, 52 years old. Routine annual screening examination. PERTINENT HISTORY: History of benign breast biopsy. TECHNIQUE: Digital bilateral breast zack (3D mammographic acquisition) in the CC and MLO projections. 2-D mediolateral oblique (MLO) and craniocaudad (CC) views of both breasts were obtained. CAD: Full Field Digital Mammography with Computer Added Detection was performed. COMPARISON: Mammogram from 02/27/2021, 02/10/2020 FINDINGS: Breast Composition: The breasts are heterogeneously dense, which may obscure small masses. There are no dominant masses or suspicious calcifications. Stable biopsy marker in the right breast. Stable asymmetrical dense breast tissue in the right upper outer breast when compared to the left. No other significant abnormalities are identified. There has been no significant change since the prior study. BI/SCRN MAMM (CAD)W/ZACK BILAT IMPRESSION: Stable bilateral screening mammogram. Yearly follow-up mammogram recommended. (A) ASSESSMENT CATEGORY: BIRADS Category 2: Benign. A letter regarding these results will be sent to the patient by the facility within 30 days. Approximately 10% of breast cancers are not detected by mammography. A normal mammogram should not delay biopsy of a clinically suspicious abnormality. Electronically Signed: Carlitos Beyer DO at 10:19 EDT ,
== END | disposition home or self-care (01) ==
LOC: OPBI 07:59
PROVIDERS: PCP Family Medicine; Referring Provider Nurse Practitioner Women's Health; Visit Provider Nurse Practitioner Women's Health
DX: Z12.31 Encounter for screening mammogram for malignant neoplasm of breast (principal)
CPT/HCPCS: 77063; 77067

== ENCOUNTER → 2022-11-23 | Outpatient (CLI) | payer OTHER, SELFPAY ==
[2022-11-23 10:50] LABS: AST(SGOT) 19 U/L (15-37); Alanine Aminotransfer ALT/SGPT 27 U/L (13-56); Albumin, Serum 3.6 g/dL (3.2-5.0); Alkaline Phosphatase 112 U/L (45-117); Anion Gap 7 (5-15); BUN 16 mg/dL (7-18); Calcium,Total 10.3 mg/dL (8.5-10.1); Chloride 104 mmol/L (98-107); Creatinine, Serum 0.89 mg/dL (0.55-1.02); EST Glomerular Filtration Rate 71 mL/min (>60); Est Glom Filt Rate - Afr Amer 86 mL/min (>60); Globulin 3.6 g/dL (2.2-4.2); Glucose 93 mg/dL (74-106); Potassium 4.6 mmol/L (3.5-5.1); Protein, Total 7.2 g/dL (6.4-8.2); Sodium Level 138 mmol/L (136-145)
== END | disposition home or self-care (01) ==
LOC: MFPLAB 09:01
PROVIDERS: PCP Family Medicine; Visit Provider Family Medicine
DX: B35.1 Tinea unguium (principal)
CPT/HCPCS: 36415; 80053

== ENCOUNTER → 2023-11-18 | Outpatient (CLI) | payer OTHER, SELFPAY ==
--- NOTE | 2023-11-18 08:24 | BI_ITS ---
MAMMOGRAPHY - BILATERAL SCREENING REASON FOR EXAM: Female, 53 years old. Routine annual screening examination. PERTINENT HISTORY: Non-contributory. Prior right ultrasound-guided breast biopsy. TECHNIQUE: Digital bilateral breast zack (3D mammographic acquisition) in the CC and MLO projections. 2-D mediolateral oblique (MLO) and craniocaudad (CC) views of both breasts were obtained. CAD: Full Field Digital Mammography with Computer Added Detection was performed. COMPARISON: Comparison is made with prior study dated October 31, 2022 and February 27, 2021. FINDINGS: Breast Composition: The breasts are heterogeneously dense, which may obscure small masses. There are no dominant masses or suspicious calcifications. Stable asymmetry of breast tissue or more breast tissue is seen in the upper outer quadrant of the right breast. A tissue clip marker is seen within the anterior aspect of the breast tissue. There is a 1.6 cm x 2.4 cm well-defined nodule in the anterior lateral superior alveolar region of the rest breast. No other significant abnormalities are identified. BI/SCRN MAMM (CAD)W/ZACK BILAT IMPRESSION: Persistent asymmetry of breast tissue or more breast tissue is seen in the upper-outer quadrant right breast as compared to the left side. Within the asymmetry, I suspect a 1.6 cm x 2.4 cm well-defined nodule. Correlation with ultrasound is recommended. ASSESSMENT CATEGORY: BIRADS Category 0: Incomplete. Need additional imaging evaluation. A letter regarding these results will be sent to the patient by the facility within 30 days. Approximately 10% of breast cancers are not detected by mammography. A normal mammogram should not delay biopsy of a clinically suspicious abnormality. [id number] Electronically Signed: Tung Mas MD at 12:40 EDT ,
== END | disposition home or self-care (01) ==
LOC: OPBI 08:24
PROVIDERS: PCP Family Medicine; Referring Provider Nurse Practitioner Women's Health; Visit Provider Nurse Practitioner Women's Health
DX: Z12.31 Encounter for screening mammogram for malignant neoplasm of breast (principal)
CPT/HCPCS: 77063; 77067

== ENCOUNTER → 2023-11-20 | Outpatient (CLI) | payer OTHER, SELFPAY ==
--- NOTE | 2023-11-20 08:25 | US_ITS ---
STUDY: ULTRASOUND BREAST - RIGHT REASON FOR EXAM: Female, 53 years old. Abnormal screening mammogram. TECHNIQUE: Axial and longitudinal images of the RIGHT breast were performed with a high resolution ultrasound transducer. # OF IMAGES: 49 COMPARISON: Comparison is made with prior mammogram dated November 18, 2023 and prior sonogram of the right breast dated February 10, 2020. FINDINGS: RIGHT Breast: A tissue clip marker is seen within a 1 cm x 1.1 cm x 0.8 cm heterogeneous lesion at the 10:00 position breast at 3 cm from the nipple. There is a 7 mm x 6 mm x 4 mm hypoechoic nodule with a focal increased vascularity at the 10:00 position of the breast at 4 cm from the nipple. Biopsy recommended. US/Breast Limited Unilateral IMPRESSION: 7 mm x 6 mm x 4 mm hypoechoic nodule with a focal area of increased vascularity at the 10:00 position of the breast at 4 cm from nipple. Biopsy recommended. ASSESSMENT CATEGORY: BIRADS Category 4: Suspicious - Biopsy Should Be Considered. A letter regarding these results will be sent to the patient by the facility within 30 days. Electronically Signed: Tung Mas MD at 11:28 EDT ,
--- NOTE | 2023-11-20 09:08 | BI_ITS ---
MAMMOGRAPHY - UNILATERAL DIAGNOSTIC: RIGHT BREAST REASON FOR EXAM: Female, 53 years old. Abnormal screening mammogram. PERTINENT HISTORY: Non-contributory. TECHNIQUE: 90 degree lateral and compression spot views of the right breast were obtained. CAD: Full Field Digital Mammography with Computer Added Detection was performed. COMPARISON: Comparison is made with prior study dated November 18, 2023. FINDINGS: Breast Composition: The breasts are heterogeneously dense, which may obscure small masses. There are no dominant masses or suspicious calcifications. No other significant abnormalities are identified. BI/DIAG MAMM W/CAD, UNILAT IMPRESSION: Negative unilateral diagnostic mammogram. Yearly followup mammogram recommended. (A) ASSESSMENT CATEGORY: BIRADS Category 1: Negative. A letter regarding these results will be sent to the patient by the facility within 30 days. Approximately 10% of breast cancers are not detected by mammography. A normal mammogram should not delay biopsy of a clinically suspicious abnormality. Electronically Signed: Tung Mas MD at 11:22 EDT ,
== END | disposition home or self-care (01) ==
LOC: OPUS 08:22
PROVIDERS: PCP Family Medicine; Referring Provider Advanced Practice Midwife; Visit Provider Advanced Practice Midwife
DX: N63.11 Unspecified lump in the right breast, upper outer quadrant (principal)
CPT/HCPCS: 76642; 77065

== ENCOUNTER → 2023-12-03 | Outpatient (CLI) | payer OTHER, SELFPAY ==
--- NOTE | 2023-12-03 | IMM_PTH ---
PATIENT: SESAR CISNEROS LOC: [facility]#:[id number] AGE/SX: 53/F ROOM: RE12/03/[address]: Lizette Almeida PA-C : 1970 BED: DIS: 12/03/2023 SPEC #: [id number] RECD: 12/05/23 13:48 STATUS: ALFRED REQ #: [id number] ROMÁN: 12/03/23 00:[address]: Lizette Almeida DEPT: IMMUNOHISTOCHEMISTRY RECD BY: Lucas Andre ENTERED: 12/05/23 13:49 SP TYPE: IMMUNO OTHR DR: Dr. Akash Connell MD Tissues: Right breast, NOS Procedures: CK8 (initial) CALPONIN-1 (add) E-CAD (add) P40 (add) PHYSICIAN & INSTITUTION [place] [phone] SPECIMEN INFORMATION: Tissue Source: Right breast 10 o'clock Clinical Info: Right breast mass Specimen Number: [id number] CPT code: 58474,11428d0 METHODOLOGY: Deparaffinized sections of prefer/formalin-fixed tissue or PAP/DQ stained slides are incubated with monoclonal/polyclonal antibodies/oligonucleotide probes. Localization is made via biotin free immunoperoxidase method. Appropriate controls are performed and reacted as expected. Results on target cell population are indicated in the following table: RESULTS: ANTIBODY / CLONE RESULT CK8 ([id number]) positive E-Cad (ECH-6) negative, focal Calponin-1 (UI595Q) positive P40 (BC28) positive These tests were developed and their performance characteristics determined by [facility]. They may not have been cleared or approved by the U.S. Food and Drug Administration. The FDA has determined that such clearance or approval is not necessary. The above immunohistochemical/dualISH markers are ordered and reviewed by the Pathologist. INTERPRETATION: Right breast, 10 o'clock, 3.0cm from the nipple, biopsy: Mild intraductal hyperplasia without atypia. Focal minimal atypical lobular hyperplasia. CATERINA/mr 12/06/2023
--- NOTE | 2023-12-03 14:19 | US_ITS ---
ULTRASOUND GUIDED CORE BIOPSY REASON FOR EXAM: Female, 53 years old. Abnormal right breast ultrasound PERTINENT HISTORY: Hypoechoic nodule at the 10:00 position of the breast at 3 cm from the nipple. COMPARISON: Comparison is made with prior ultrasound dated November 20, 2023. TECHNIQUE: (All elements of maximal sterile barrier technique followed, including US elements as applicable) Upon arrival to the breast imaging department the patient''s identification was confirmed and the RIGHT breast was marked according to time-out protocol. Ultrasound guided core biopsy and clip placement, to include potential risks and complications, was explained in full to the patient. Written and verbal consent were obtained prior to initiation of the procedure. The RIGHT breast was prepped and draped in standard sterile fashion and local anesthesia was obtained with 1% buffered lidocaine. A small dermatotomy was then made to introduce the core biopsy needle. Under ultrasound guidance multiple core samples were obtained with a 14-gauge needle and submitted in formalin for pathology. A titanium clip was then deployed into the biopsy cavity under ultrasound guidance. Upon completion of the procedure hemostasis was obtained and sterile dressing was applied. The patient tolerated the entire procedure without immediate complication and was discharged from the breast imaging department in good condition. US/US Breast Biopsy 1st Lesion IMPRESSION: Ultrasound guided core biopsy of a mass in the RIGHT breast at 10:00 position breast at 3 cm from the nipple without complication. Electronically Signed: Tung Mas MD at 8:08 EDT ,
--- NOTE | 2023-12-03 14:45 | BRBX_PTH ---
PATIENT: SESAR CISNEROS LOC: [facility] [[email or web address]]#:[id number] AGE/SX: 53/F ROOM: RE12/03/[address]: Lizette Almeida PA-C : 1970 BED: DIS: 12/03/2023 SPEC #: [id number] RECD: 12/03/23 15:06 STATUS: ALFRED SURESH #: [id number] ROMÁN: 12/03/23 14:[address]: Lizette Almeida DEPT: SURGICAL PATHOLOGY RECD BY: Paige Marcelo ENTERED: 12/04/23 10:36 SP TYPE: BREAST BX OTHR DR: Dr. Akash Connell MD Tissues: Right breast, NOS Procedures: Surgery Specimen Level IV HEADER OPERATION: Breast biopsy- right PRE-OP DIAGNOSIS: Right breast mass TISSUE SUBMITTED: 10 o'clock, 3cm from the nipple Ischemic Time: 1 minute Fixation Time: 5 hours MICROSCOPIC DIAGNOSIS Right breast mass, 10o'clock, 3 cm from the nipple, core biopsy: Intraductal hyperplasia without atypia. Focal minimal atypical lobular hyperplasia Extensive dense fibrosis and focal chronic inflammation. Negative for malignancy. See comment. Patricio 12/05/2023 COMMENT Immunohistochemistry ([id number]) supports the above diagnosis. Correlation with clinical, radiologic findings and appropriate follow up are necessary. MICROSCOPIC DESCRIPTION Slides are reviewed. GROSS DESCRIPTION Received in fixative is one container labeled with the patient's name and designated Right breast. The specimen consists of multiple elongated fragments of jackson yellow fibroadipose tissue that in aggregate measure 2.0 x 0.3 x 0.1 cm. The specimen is totally submitted in one cassette. Patricio 12/04/2023 TC:5 CPT:29064
--- NOTE | 2023-12-03 14:45 | PCM.OPRPT ---
Report of Operation Date of Procedure: 12/03/23 Pre-Operative Diagnosis: Abnormal right breast mammogram Post-Operative Diagnosis: Same Surgery/Procedure Performed:: Ultrasound-guided biopsy of the right breast with placement of clip Type of Anesthesia: Local Specimen's removed: Right breast biopsies Description of Procedure: The patient was prepped and draped in the right breast was examined under ultrasound. The mass was located as well as the cystic portion of the mass. Local anesthetic was injected into the skin and then a small incision was made with scalpel. 14-gauge biopsy needle was placed into the mass several times and biopsies were obtained. A clip was then placed into the area. The area in question appeared to be a cyst and ruptured with the first pass of the biopsy needle. The needle was removed and a Steri-Strip was placed over the incision. Patient tolerated the procedure well.
== END | disposition home or self-care (01) ==
LOC: US 14:16
PROVIDERS: PCP Family Medicine; Referring Provider Physician Assistant; Visit Provider Physician Assistant
DX: N60.31 Fibrosclerosis of right breast (principal); N61.0 Mastitis without abscess; R92.8 Other abnormal and inconclusive findings on diagnostic imaging of breast
CPT/HCPCS: 19083; 88305; 88341; 88342

== ENCOUNTER 2024-01-22 06:58 | Day surgery (SDC) | payer OTHER, SELFPAY ==
[2024-01-22] VITALS (11 sets, daily range): BP systolic 111–135; BP diastolic 64–90; PULSE 60–89; RESP 16–18; TEMP 36.2–36.4; O2SAT 95–99; BMI 46.5
--- NOTE | 2024-01-22 | BREAST_PTH ---
PATIENT: SESAR CISNEROS LOC: [facility] U#:[id number] AGE/SX: 53/F ROOM: RE01/22/[address]: Dr. Albert Nino MD : 1970 BED: DIS: 01/22/2024 SPEC #: [id number] RECD: 01/22/24 11:32 STATUS: ALFRED PRINCE #: [id number] ROMÁN: 01/22/24 00:[address]: Albert Nino DEPT: SURGICAL PATHOLOGY RECD BY: Juan Borden ENTERED: 01/22/24 11:44 SP TYPE: BREAST OTHR DR: Dr. Akash Connell MD Tissues: Right breast, NOS Procedures: Surgery Specimen Level V HEADER OPERATION: Ultrasound guided wire localization of right partial mastectomy PRE-OP DIAGNOSIS: Abnormal mammogram of right breast TISSUE SUBMITTED: Right breast mastectomy MICROSCOPIC DIAGNOSIS Right breast, mastectomy: Lobular carcinoma in situ. See synoptic report below. AM/mr 01/24/2024 COMMENT BREAST CANCER SUMMARY Procedure: Mastectomy Specimen: Partial breast Type: Partial breast Laterality: Right breast Tumor: Lobular neoplasia (inclusive of lobular carcinoma in situ and atypical lobular hyperplasia) Size: estimated size 1.0mm to 7.5mm in greatest dimension (multiple foci) Focality: Multiple foci. Histologic type: Lobular neoplasia. Histologic grade (Roberta grade): Glandular/tubular differentiation score: 3 Nuclear pleomorphism score: 2 Mitotic count score: 1 Overall grade: 1 (score of 5) Lymph vascular invasion: Not identified. Ductal Carcinoma In Situ: Not identified Tumor extension: Skin: No skin present Nipple: No nipple present. Skeletal muscle: No skeletal muscle identified. Margins: Margins uninvolved by in situ carcinoma (2.0mm for closest inked margin) Lymph Nodes: Not present in specimen Microcalcifications: Not present in specimen Treatment Effect: Unknown Additional Pathologic Findings: Usual intraductal hyperplasia without atypia, fibrocystic change, involution and changes of previous biopsy Ancillary Studies: Immunohistochemistry, [id number]: ER: >95%, strong intensity AZ: 80%, moderate to strong intensity Qgk6ocg: Negative (0-1+) Ki67: 20% Clinical History: Focal atypical lobular hyperplasia (previous biopsy, [id number]) PATHOLOGIC STAGE: T(LCIS) Nx Mx The above summary is in compliance with College [employer] Path[employer] (CAP) Cancer Protocol Checklist and [place] Joint Committee on Cancer (AJCC) Staging Manual, 8th Ed. Case has been reviewed in consultation with Dr. Sheriff who concurs with the above diagnosis. IDC:SJ MICROSCOPIC DESCRIPTION Slides are reviewed. GROSS DESCRIPTION Received fresh and post fixed in formalin is one container labeled with the patient's name and designated Right breast mass. The specimen consists of three variable sized pieces of jackson-yellow fibroadipose tissue. The largest piece measures 6.0 x 4.5 x 2.5cm and the two smaller pieces measures 3.0 x 3.0 x 2.0cm and 3.0 x 2.0 x 1.0cm. No orientation is provided. All three pieces are inked black. Sections reveal jackson-yellow fibroadipose cut surfaces without any well defying mass lesion. Section of the smallest piece mostly reveal yellow adipose cut surfaces. [employer] sections are submitted in twelve cassettes. CATERINA/ 01/23/2024 TC:0 CPT:48777 ADDENDUM ADDENDUM ADDENDUM ADDENDUM ADDENDUM ADDENDUM ADDENDUM ADDENDUM ADDENDUM ADDENDUM ADDENDUM ADDENDUM ADDENDUM ADDENDUM ADDENDUM ADDENDUM ADDENDUM 03/11/2024 15:51 ADDENDUM 03/11/2024 15:51 ADDENDUM 03/11/2024 15:51 ADDENDUM 03/11/2024 15:51 ADDENDUM 03/11/2024 15:51 This addendum is added to incorporate an outside pathology consultation report. The case was examined at [facility] (#[id number]) and the following diagnosis was rendered. PATHOLOGIC DIAGNOSIS: Right breast, partial mastectomy: Lobular carcinoma in situ (LCIS), classic type. Biopsy sit changes. Comment. COMMENT: Submitted immunohistochemistry stains show that foci of LCIS are negative for E-cadherin and CK5/6 supporting the diagnosis. Calponin and P40 highlight myoepithelial cells surrounding foci of LCIS. Please see complete above mentioned consultation report in EMR
--- NOTE | 2024-01-22 | IMM_PTH ---
PATIENT: SESAR CISNEROS LOC: [facility] [place] U#:[id number] AGE/SX: 53/F ROOM: RE01/22/[address]: Dr. Albert Nino MD : 1970 BED: DIS: 01/22/2024 SPEC #: [id number] RECD: 01/24/24 11:15 STATUS: ALFRED REQ #: [id number] ROMÁN: 01/22/24 00:[address]: Albert Nino DEPT: IMMUNOHISTOCHEMISTRY RECD BY: Lucas Andre ENTERED: 01/24/24 11:16 SP TYPE: IMMUNO OTHR DR: Dr. Akash Connell MD Tissues: Right breast, NOS Procedures: CALPONIN-1 (add) CK5-6 (add) CK8 (add) E-CAD (add) HER2 REJI (add) P53 (add) ME (add) P40 (add) MOC-31 (add) ER (initial) KI-67 (initial) PHYSICIAN & [place] [phone] SPECIMEN INFORMATION: Tissue Source: Right breast mastectomy Clinical Info: Abnormal mammogram of right breast Specimen Number: [id number] CPT code: 06725,99543r5,05833f3 METHODOLOGY: Deparaffinized sections of prefer/formalin-fixed tissue or PAP/DQ stained slides are incubated with monoclonal/polyclonal antibodies/oligonucleotide probes. Localization is made via biotin free immunoperoxidase method. Appropriate controls are performed and reacted as expected. Results on target cell population are indicated in the following table: RESULTS: ANTIBODY / CLONE RESULT Block #9 P53 (DO-7) positive, wild type pattern, dim Ki-67 (30-9) positive, 20+ CK8 ([id number]) positive CK5-6 (D5 & 1684) positive Calponin-1 (JT804C) positive P40 (BC28) positive E-Cad (ECH-6) negative MOC-31 (4561) positive MORPHOMETRIC ANALYSIS ER (clone 6F11) >95%, strong intensity ME (clone 16/1E2) 80% moderate to strong intensity Her-2Neu (clone CB11) 0-1+ The prognostic test for HER2 is performed on formalin-fixed paraffin embedded tissue. A 3+ (positive) staining pattern is defined as intense, homogeneous, complete, circumferential membranous staining in >10% of contiguous tumor cells. A similar weak (2+) staining pattern is interpreted as equivocal. DAVIDA follow-up testing is recommended for all equivocal cases. Positivity/negativity for ER/ME is reported if > or < 1% of the tumor cells are immuno- reactive, respectively. The ASCO/CAP criteria is used for scoring. Reference: Journal of Clinical Oncology, 2013; 31:0189-1692 & 2010; 16:8893-8051. Ischemic time: Less than one hour. Duration of fixation: __ Hrs; Sample Adequate: Yes. These assays have not been validated on decalcified tissues. Results should be interpreted with caution given the likelihood of false negativity on decalcified specimens or fixation greater than 72 hours. Alternative testing methods (FISH/dualISH for Her2; gene expression for ER) are recommended, if applicable. Please notify the laboratory if additional testing is required. These tests were developed and their performance characteristics determined by [facility]. They may not have been cleared or approved by the U.S. Food and Drug Administration. The FDA has determined that such clearance or approval is not necessary. The above immunohistochemical/dualISH markers are ordered and reviewed by the Pathologist. INTERPRETATION: Right breast, ultrasound guided partial mastectomy: Lobular neoplasia present. Positive for estrogen receptors (favorable prognostic indicator). Positive for progesterone receptors (favorable prognostic indicator). Negative for overexpression of [id number]. AM/mr 01/27/2024
[2024-01-22] MEDS: Lactated Ringers 1,000 ML 15 ML IV (07:28)
--- NOTE | 2024-01-22 07:32 | PRE.ANES_ITS ---
ASA Classification* ASA Classification ASA Classification: 3 Assessment & Plan Anesthesia* Anesthesia Assessment Anesthesia Assessment: Discussed sedation and/or anesthesia options, risks, benefits, and alternatives with patient/parents/legal guardian/POA. Questions invited. The patient/parents/legal guardian/POA seems to understand and agrees to proceed with anesthesia plan. Reviewed the physical assessment, medical history, allergy history and patient home medications list prior to surgery/procedure/anesthetic and documented any changes. Performed airway and anesthesia risk assessments. Anesthesia Type Anesthesia Type: General Anesthesia Focused Assessment* Temperature: 97.1 F Pulse Rate: 61 Blood Pressure: 135/64 Respiratory Rate: 16 Pulse Ox: 99 Airway Assessment Mouth opens: >3 cm Mallampati Score: II Focused Labs Anesthesia Preop lab: CBC WBC 13.2 K/mm3 (4.4-11.0) H 10/31/21 21:40 RBC 4.68 M/mm3 (4.2-5.4) 10/31/21 21:40 Hgb 14.8 g/dL (12.0-15.0) 10/31/21 21:40 Hct 42.8 % (37-47) 10/31/21 21:40 Plt Count 296 K/mm3 (150-450) 10/31/21 21:40 CHEMISTRY Potassium 4.6 mmol/L (3.5-5.1) 11/23/22 09:01 Sodium 138 mmol/L (136-145) 11/23/22 09:01 BUN 16 mg/dL (7-18) 11/23/22 09:01 Creatinine 0.89 mg/dL (0.55-1.02) 11/23/22 09:01 Glucose 93 mg/dL (74-106) 11/23/22 09:01 TSH 1.40 uIU/mL (0.358-3.74) 09/06/21 10:20 COAG Urine Test Negative Negative 12/13/16 06:17 Pre-Assessment Diagnosis/Proposed Procedure Planned Operative Procedure(s): U/S GUIDED WIRE LOCALIZATION RIGHT BREAST EXCISION BIOPSY Anesthesia History 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 When Was Last Pacemaker Check QUESTION #4 FULL TEXT: You/Your Family Experience fever (hyperthermia) with Anesthesia Last Oral Intake Last Oral intake: Last Oral Intake NPO since 18:00 01/22/24 07:24 Meds taken in AM with sips of No 01/22/24 07:24 water? Meds patient instructed to take am of surgery PONV PONV - amusement ride inspector: PONV - amusement ride inspector Female Yes 01/20/24 14:32 HX of Motion Sickness Yes 01/20/24 14:32 HX of N/V After Surgery No 01/20/24 14:32 Non-Smoker Yes 01/20/24 14:32 Duration of Surgery greater Yes 01/20/24 14:32 than 60 minutes Number of Risk Factors 4 01/20/24 14:32 PONV Score Severe Risk 01/20/24 14:32 Height & Weight Height & Weight: Anesthesia: Height & Weight Height 5 ft 5 in 01/22/24 07:24 Weight: 127 kg 01/22/24 07:24 Body Mass Index (BMI) 46.5 01/22/24 07:24 Respiratory Assessment Respiratory Assessment - amusement ride inspector: Respiratory Tract Infection Hx - amusement ride inspector Hx Respiratory Tract Infection No 01/20/24 14:32 STOP Sleep Apnea STOP Sleep Apnea - amusement ride inspector: STOP Sleep Apnea - amusement ride inspector Hx Hypertension No 01/20/24 14:32 Hx Sleep Apnea Yes 01/20/24 14:32 CPAP Yes: NONCOMPLIANT 01/20/24 14:32 BIPAP No 01/20/24 14:32 Do you snore loudly (louder than talking or can be heard Do you often feel tired/ fatigued/ sleepy during daytime? Has anyone observed you stop breathing during sleep? STOP Results Positive 01/20/24 14:32 QUESTION #5 FULL TEXT : Do you snore loudly (louder than talking or can be heard through closed doors)? 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 Specify any problems Hx of Preganancy in last 3 No 01/20/24 14:32 Months Nurse Filling Out Transfusion DSCHRIBER 01/20/24 14:32 & Questions: Date: 01/20/24 01/20/24 14:32 Time: 14:33 01/20/24 14:32 Patient unable to answer at this time (ie. confused, unrespo /Reproduction History /Reproductive History - amusement ride inspector: /Reproductive Hx- amusement ride inspector Hx Now No 01/20/24 14:32 Gestational Age (in weeks): EDC: Hx Hx Para Hx Section SAB No 01/20/24 14:32 Active Medications Active Medications: Current Medications Generic Name Dose Route Start Last Admin Trade Name Freq PRN Reason Stop Dose Admin Cefazolin Sodium 3 gm/ Sodium 115 mls @ 150 mls/hr 01/22/24 09:00 Chloride IV 01/22/24 09:45 PREOP ONE Lactated Ringer's 1,000 mls @ 15 mls/hr 01/22/24 07:15 01/22/24 07:28 IV 15 mls/hr .Q48H HAROON Administration PFSH Medical History Depression CPAP (continuous positive airway pressure) dependence Wears glasses Anxiety Alcohol use Vertigo Non-smoker Rectal prolapse Bladder prolapse Hormone replacement therapy (HRT) Hemorrhoid Dislocation of left elbow RUCHI (obstructive sleep apnea) Home Medications ?Medication ?Instructions ?Recorded ?Last Taken ?Type loratadine 10 mg tablet (Allergy 10 mg PO DAILY PRN PRN allergy 10/24/22 Unknown History Relief (loratadine)) symptoms estradiol 1 mg tablet (Estrace) 1 mg PO QDAY #90 tabs 11/11/23 01/21/24 Rx Allergy/AdvReac Type Severity Reaction Status Date / Time Seasonal Allergies: Uncoded Allergy Intermediate NEEDS Verified 01/22/24 07:15 FOLLOW-UP adhesive Allergy Rash Verified 01/22/24 07:15 erythromycin lactobionate Allergy Vomiting Verified 01/22/24 07:15 (From Erythrocin) polyethylene glycol 3350 Allergy Vomiting Verified 01/22/24 07:15 (From Miralax) meloxicam (From Mobic) AdvReac Severe Vomiting Verified 01/22/24 07:15 Family History Father Hypertension Uncle Cancer prostate Other Glaucoma Surgical History Hx of colonoscopy Hx of Achilles tendon repair S/P tonsillectomy S/P cholecystectomy S/P arthroscopy of right shoulder s/p right ankle surgery s/p ankle surgery Status post left foot surgery S/P partial hysterectomy Social History Smoking Status: Never smoker alcohol intake: current details: occasionally substance use type: does not use what type of physical activity do you participate in: none seatbelt use: always do you feel safe at home: Yes 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
--- NOTE | 2024-01-22 08:09 | PCM.HP.BLA ---
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 Is patient in pain?: No Allergies Seasonal Allergies: Uncoded Allergy (Intermediate, Verified 01/20/24 07:59) NEEDS FOLLOW-UPadhesive Allergy (Verified 01/20/24 07:59) Rasherythromycin lactobionate (From Erythrocin) Allergy (Verified 01/20/24 07:59) Vomitingpolyethylene glycol 3350 (From Miralax) Allergy (Verified 01/20/24 07:59) Vomitingmeloxicam (From Mobic) Adverse Reaction (Severe, Verified 01/20/24 07:59) Vomiting PFSH Medical History Wears glasses Anxiety Alcohol use Vertigo Non-smoker History of edema Rectal prolapse Bladder prolapse Hormone replacement therapy (HRT) Hemorrhoid Dislocation of left elbow RUCHI (obstructive sleep apnea) Surgical History Hx of colonoscopy Hx of Achilles tendon repair S/P tonsillectomy S/P cholecystectomy S/P arthroscopy of right shoulder s/p right ankle surgery s/p ankle surgery Status post left foot surgery S/P partial hysterectomy Family History Father HypertensionUncle Cancer prostateOther Glaucoma Social History Smoking Status: Never smoker alcohol intake: current details: occasionally substance use type: does not use what type of physical activity do you participate in: none seatbelt use: always do you feel safe at home: Yes additional social history: 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 She has had no issues except for bruising. ROS General General: Yes weight change (gain); No weakness HEENT HEENT: No difficulty swallowing, eye injury, eye surgery, swollen glands or hoarseness Endo Endocrine: No thyroid disease, diabetes mellitus, thyroid cancer, Hair loss, heat intolerance or cold intolerance Skin Skin: No rash or changing moles Breast Breast: Yes abnormal mammogram; No left breast lump, right breast lump, nipple discharge, breast pain, abnormal US or breast enlargement Musc Musculoskeletal: No back problems, arthritis, rheumatoid arthritis, gout or joint pain Cardio Cardiovascular: No murmur, pacemaker, heart disease, atrial fibrillation, high blood pressure, heart attack, heart stent, palpitations, shortness of breat with exertion or chest pain Resp Respiratory: No shortness of breath, Yes sleep apnea, No cough, No COPD, No asthma, No emphysema and No wheezing Gastro Gastrointestinal: No abdominal pain, No nausea or vomiting, No diarrhea, No constipation, No blood in stool, No acid reflux, Yes hemorrhoids, No ulcers, No gallbladder problem and No black,tarry stools Ayan Hematologic: No blood thinners, No blood disorders, No bleeding, No anemia and No blood clots Neuro Neurologic: No numbness, No tingling and No weakness Exam Const General: cooperative Orientation: alert and oriented x3 HENMT Head: normal to inspection Neck Neck: normal visual inspection and full ROM Chest Chest palpation & inspection: normal inspection of the chest Resp Effort & Inspection: normal respiratory effort Auscultation: clear to auscultation bilaterally Cardio Rate: regular rate Rhythm: regular rhythm GI Inspection: non-distended Palpation: soft and nontender Skin General: no rashes or lesions noted Neuro General: patient alert and patient oriented x3 Extrem General: full ROM Psych Appearance: grossly normal Mental Status: mental status grossly normal Assessment and Plan Assessment and Plan (1) Abnormal mammogram of right breast: Status: Acute Plan: The patient had a mass in the right breast adjacent to an old mass. This was biopsied and showed some atypia. I discussed removing both masses under general anesthesia and sending them for biopsy. I discussed ultrasound-guided wire localization as well. I discussed the risks including but not limited to bleeding, infection, need for further surgery. Patient understands the risks and is willing to proceed. Albert Nino MD Pager: [facility] [address] [place] [address] [address] [place] [address] Office: I have examined the patient and the H&P has been reviewed. There are no clinical changes since date of exam.
[2024-01-22] MEDS: Cefazolin 3 GM in 0.9% Normal Saline (100mL Bag) 100 ML IV (08:17)
[2024-01-22] MEDS: Bupivacaine Mpf 0.5% 30 ML VIAL (08:36)
--- NOTE | 2024-01-22 09:28 | PCM.OPRPT ---
Report of Operation Date of Procedure: 01/22/24 Pre-Operative Diagnosis: Atypical lobular tissue of the right breast Post-Operative Diagnosis: Same Surgery/Procedure Performed:: 1. Ultrasound-guided wire localization 2. Right partial mastectomy Type of Anesthesia: General/Regional Specimen's removed: Right breast mass Estimated Blood Loss (mL): 20 Description of Procedure: Patient was brought back to the operating room and general anesthesia was induced. The right breast was inspected with ultrasound and the mass was localized. An area of skin was cleaned with alcohol swab and then the needle was placed into the mass under ultrasound guidance. Next a curvilinear incision was marked and injected with local anesthetic. Incision was made with a scalpel. Flaps were raised and the wire was brought into the incision. While the wire was being brought into the incision it dislodged. It was found that the wrong and was placed during wire localization. Fluoroscopy confirmed that there was no further wire in the breast. The firm tissue was resected and fluoroscopy was used to ensure that both clips were obtained. The specimen was sent down to mammography showing both clips. The cavity was irrigated and suctioned dry and hemostasis was obtained using lecture cautery. The skin incision was closed with interrupted 3-0 Vicryl sutures and a running 4-0 Monocryl suture. Dermabond was applied. Patient was taken to PACU in stable condition. Admit VTE Documentation VTE Mechan Device Prophylaxis: SCD's
--- NOTE | 2024-01-22 09:30 | BI_ITS ---
SURGICAL BREAST SPECIMEN RADIOGRAPH CLINICAL: Document presence of tissue clip marker in biopsy specimen. FINDINGS: Specimen shows presence of tissue clip marker. Electronically Signed: Tung Mas MD at 14:43 EDT , BI/Breast Biopsy Specimen IMPRESSION: undefined
--- NOTE | 2024-01-22 09:31 | EX.PCM.DISCH ---
Discharge Instructions Diet Discharge Diet: Light diet - advance as tolerated Activity Discharge Activity: May Not Drive (while on narcotics) and May Shower (tomorrow) Lifting Restrictions: 15 lbs for 1 week Additional Activity Instructions:: Alternate ibuprofen and Tylenol for pain control, oxycodone for breakthrough pain Dressing / Incision Call your doctor if your incision/area has: Continuous Slow Oozing, Sudden Increased Bleeding, Increased Pain/ Swelling, Increased Redness, Foul Smelling Discharge and Swelling at the incision site Call your doctor if you observe: Fever of 101 or Higher Cleanse incision/area with: Soap & Water Follow Up Care Please Follow Up With: Albert Nino MD When: Please call to schedule 2 week follow up appointment. [phone] Test Results: Test results from this visit will be discussed in further detail at your follow-up appointment, if applicable. Discharge Plan Admission Attending Provider: Albert Nino Primary Care Provider: Akash Connell Instructions Print Language: Bulgarian Discharge Orders/Prescriptions Prescriptions: New oxycodone 5 mg Tablet 5 - 10 mg PO Q4H PRN PRN (Reason: Pain Score 4-10) 5 Days Qty: 10 0RF No Action loratadine [Allergy Relief (loratadine)] 10 mg tablet 10 mg PO DAILY PRN PRN (Reason: allergy symptoms) estradiol [Estrace] 1 mg tablet 1 mg PO QDAY Qty: 90 4RF Referrals / Follow Up: Akash Connell MD [Primary Care Provider] - Disposition Disposition (needs filled in before D/C Order can be placed): Home, Self Care
--- NOTE | 2024-01-22 09:47 | PCM.POST.ANE ---
Anesthesia: Postop Eval I Current Vital Signs Temperature: 97.6 F Pulse Rate: 89 Blood Pressure: 116/88 Respiratory Rate: 18 Pulse Ox: 96 Oxygen Delivery Method: Room Air Assessment Airway patent: Yes Spontaneous unlabored respirations: Yes Mental status: Awake and Calm nausea: No Vomiting: No Anesthesia Complication: No Fluid Hydration Crystalloid volume administer (ml): 400 Total IV fluid infused: 400 Progress Note Anesthesia document: Postop Eval 1 completed: Yes
--- NOTE | 2024-01-22 10:04 | POSTOPAN2_ITS ---
Anesthesia Postop Eval I Sum Postop Eval Completion status Anesthesia document: Postop Eval 1 completed: Yes Anesthesia Postop Eval I Summary Anesthesia Postop Eval I Summary: Anesthesia Postop Eval I: Assessment Summary Airway patent Yes 01/22/24 09:48 [email or web address] [email or web address] Spontaneous unlabored Yes 01/22/24 09:48 LEAD [email or web address] respirations Mental status Awake,Calm 01/22/24 09:48 LEAD [email or web address] nausea No 01/22/24 09:48 LEAD [email or web address] Vomiting No 01/22/24 09:48 [email or web address] Anesthesia Postop Eval I: Fluid Summary Crystalloid volume administer 400 01/22/24 09:48 LEAD [email or web address] (ml) Colloids volume administered ( ml) Blood Product volume administered (ml) Total IV fluid infused 400 01/22/24 09:48 LEAD [email or web address] Anesthesia Postop Eval I: Summary Notes Anesthesia Complication No 01/22/24 09:48 LEAD [email or web address] Anesthesia Complication Comment: Post-operative progress note Anesthesia: Postop Eval II Evaluation Mental status: Awake Pain Level: 0 nausea: No Vomiting: No
--- NOTE | 2024-01-22 10:04 | PCM.POSTANE2 ---
Anesthesia Postop Eval I Sum Postop Eval Completion status Anesthesia document: Postop Eval 1 completed: Yes Anesthesia Postop Eval I Summary Anesthesia Postop Eval I Summary: Anesthesia Postop Eval I: Assessment Summary Airway patent Yes 01/22/24 09:48 PERSONNEL [email or web address] Spontaneous unlabored Yes 01/22/24 09:48 PERSONNEL [email or web address].SCHR respirations Mental status Awake,Calm 01/22/24 09:48 PERSONNEL [email or web address].SCHR nausea No 01/22/24 09:48 PERSONNEL [email or web address].SCHR Vomiting No 01/22/24 09:48 [facility] Anesthesia Postop Eval I: Fluid Summary Crystalloid volume administer 400 01/22/24 09:48 PERSONNEL [email or web address].SCHR (ml) Colloids volume administered ( ml) Blood Product volume administered (ml) Total IV fluid infused 400 01/22/24 09:48 PERSONNEL [email or web address].SCHR Anesthesia Postop Eval I: Summary Notes Anesthesia Complication No 01/22/24 09:48 PERSONNEL [email or web address].SCHR Anesthesia Complication Comment: Post-operative progress note Anesthesia: Postop Eval II Evaluation Mental status: Awake Pain Level: 0 nausea: No Vomiting: No
[2024-01-22] MEDS: oxyCODONE 5 MG Tablet PO (11:01)
[2024-01-22] MEDS: Acetaminophen 325 MG Tablet 650 MG PO (11:02)
== END 2024-01-22 11:35 | disposition home or self-care (01) ==
LOC: SDC 06:59 → AC 07:01
PROVIDERS: PCP Family Medicine; Referring Provider Surgery; Visit Provider Surgery
PROC: (CPT 19083; principal; 2024-01-22 08:45)
DX: C50.911 Malignant neoplasm of unspecified site of right female breast (principal); E66.01 Morbid (severe) obesity due to excess calories; G47.33 Obstructive sleep apnea (adult) (pediatric); Z79.890 Hormone replacement therapy
CPT/HCPCS: 19301; 19285; 00400; 76000; 76098; 81002; 88307; 88341; 88342; A4648; J7120; J2405

== ENCOUNTER → 2024-02-17 | Outpatient (CLI) | payer OTHER, SELFPAY | END | disposition home or self-care (01) | PROVIDERS: PCP Family Medicine; Referring Provider Physician Assistant; Visit Provider Physician Assistant | DX: N64.89 Other specified disorders of breast (principal) | CPT/HCPCS: 87070; 87075; 87077; 87186; 87205 ==

== ENCOUNTER → 2024-08-28 | Outpatient (CLI) | payer OTHER, SELFPAY ==
[2024-08-28 11:02] LABS: Absolute Lymphocyte Count 2.54 X10^3/uL (0.83-4.51); Absolute Neutrophil Count 3.8 X10^3/uL (2.0-7.7); Basophil# 0.05 X10^3/uL; Basophil% 0.7 % (0-1); Eosinophil# 0.24 X10^3/uL; Eosinophils% 3.3 % (0-5); Hematocrit 39.5 % (37-47); Lymphocyte # 2.54 X10^3/ul (0.83-4.51); Lymphocyte % 34.4 % (19-41); Mean Corp Hgb Conc 32.9 g/dL (32-36); Mean Corpuscular Hgb 30.9 pg (27.0-32.0); Mean Corpuscular Volume 93.8 fL (81-99); Mean Platelet Vol. 10.5 fl (6.2-12.0); Monocyte# 0.72 X10^3/uL; Monocyte% 9.8 % (0-10); NRBC Flagged by Analyzer 0 % (0-5); Neutrophil # 3.79 X10^3/uL (2.7-7.7); Neutrophil % 51.3 % (47-70); Platelet Count 236 K/mm3 (150-450); RBC Distribution Width CV 12.7 % (11.6-14.6); RBC Distribution Width SD 43.4 fl (35.1-43.9); Red Blood Count 4.21 M/mm3 (4.2-5.4); White Blood Count 7.4 K/mm3 (4.4-11.0)
[2024-08-28 11:56] LABS: Hemoglobin A1c 5.9 % (<=5.6)
[2024-08-28 12:13] LABS: ALB/GLOB Ratio 1.3 RATIO (0.9-2.4); AST(SGOT) 23 U/L (<=31); Alanine Aminotransfer ALT/SGPT 22 U/L (<=34); Albumin, Serum 4.1 g/dL (3.5-5.0); Alkaline Phosphatase 86 U/L (35-104); Anion Gap 12 (5-15); BUN 16 mg/dL (4-19); Calcium,Total 9.2 mg/dL (7.6-11.0); Carbon Dioxide 24.5 mmol/L (21.0-32.0); Chloride 102 mmol/L (98-108); Cholesterol 192 mg/dL (<=200); Creatinine, Serum 0.82 mg/dL (0.70-1.20); EST Glomerular Filtration Rate 86 (>60); Globulin 3.1 g/dL (2.2-4.2); Glucose 99 mg/dL (70-99); High Density Lipoprotein 65 mg/dL; Low Density Lipoprotein Calc. 97 mg/dL; Potassium 4.3 mmol/L (3.3-5.1); Protein, Total 7.1 g/dL (5.9-8.4); Sodium Level 139 mmol/L (133-145); Total Bilirubin 0.44 mg/dL (0.00-1.30); Triglycerides 150 mg/dL; Very Low Density Lipoprotein 30 mg/dL (5-40); Vitamin D,25 Hydroxy 28.2 ng/mL (30-100); cholesterol:hdl ratio screen 2.94
== END | disposition home or self-care (01) ==
PROVIDERS: Nurse Practitioner Family; PCP Family Medicine; Referring Provider Nurse Practitioner Women's Health; Visit Provider Nurse Practitioner Women's Health
DX: E66.09 Other obesity due to excess calories (principal); Z68.41 Body mass index [BMI] 40.0-44.9, adult; G47.33 Obstructive sleep apnea (adult) (pediatric)
CPT/HCPCS: 36415; 80053; 80061; 82306; 83036; 84439; 84443; 85025

== ENCOUNTER → 2024-09-28 | Outpatient (CLI) | payer OTHER, SELFPAY ==
--- NOTE | 2024-09-28 07:55 | EKG12_ITS ---
Test Reason : OBESITY, SLEEP APNEA Blood Pressure : */* mmHG Vent. Rate : 68 BPM Atrial Rate : 68 BPM P-R Int : 166 ms QRS Dur : 100 ms QT Int : 414 ms P-R-T Axes : 26 -24 2 degrees QTcB Int : 440 ms Normal sinus rhythm Minimal voltage criteria for LVH, may be normal variant Borderline ECG When compared with ECG of 10-Dec-2016 09:02, No significant change was found Confirmed by AGATHA DE JESUS, THU ([id number]), sports editor TANYA RODRIGUEZ ([id number]) on 09/28/2024 10:44:14 AM Referred By: Liza Spence Confirmed By: THU SNIDER MD
== END | disposition home or self-care (01) ==
LOC: PSN 07:50
PROVIDERS: PCP Family Medicine; Referring Provider Nurse Practitioner Family; Visit Provider Nurse Practitioner Family
DX: E66.01 Morbid (severe) obesity due to excess calories (principal); Z68.41 Body mass index [BMI] 40.0-44.9, adult; G47.33 Obstructive sleep apnea (adult) (pediatric)
CPT/HCPCS: 93005

== ENCOUNTER → 2024-10-01 | Outpatient (CLI) | payer OTHER, SELFPAY ==
[2024-10-01] MEDS: Zaleplon 5 MG Capsule PO (21:30)
== END | disposition home or self-care (01) ==
LOC: SL 20:03
PROVIDERS: PCP Family Medicine; Referring Provider Nurse Practitioner Acute Care; Visit Provider Nurse Practitioner Acute Care
DX: G47.33 Obstructive sleep apnea (adult) (pediatric) (principal)
CPT/HCPCS: 95811

== ENCOUNTER → 2024-10-30 | Outpatient (CLI) | payer OTHER, SELFPAY | END | disposition home or self-care (01) | LOC: SL 12:22 | PROVIDERS: PCP Family Medicine; Visit Provider Nurse Practitioner Acute Care | DX: Z99.89 Dependence on other enabling machines and devices (principal) ==

== ENCOUNTER 2024-12-31 12:30 | Outpatient (RCR) | payer OTHER, SELFPAY ==
--- NOTE | 2024-10-28 10:19 | HP.PTEVAL_ITS ---
Patient's Visit Information Visit Information Visit Information: SESAR CISNEROS is a 54 year old F referred to Physical Therapy by ALANIS DARBY with a diagnosis of B hip pain. Date of Evaluation: 10/28/24 Physical Therapist: Justin Bo, PT, ATC Visit Plan Frequency: 2x /Week Duration: 4-6 Weeks Plan: B hip strengthening, core stab ex's, balance and proprio, DTR to R IT band, nustep, and HEP Subjective Subjective: Pt reports she has had B hip pain for the past 6-7 months. Pt reports she has had multiple surgeries on her feet, and as a result, she ambulates differently which has resulted in hip pain. 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 Pt reports she has severe pain in her groin at times. Pt reports she is limited with stair negotiation at this time secondary to pain, mostly with descending. Pt reports pain also with getting on and off of her riding mower secondary to pain. Pt notes occasional sleep difficulty at this time secondary to pain. Pt also reports she has some back pain with R LE radiculopathy to the knee region. R hip pain is 6/10 at rest, 10/10 pain at worst (which only lasts for seconds). Pt lives in a split level house. Pain R hip: Pain Intensity (Out of 10): 6 Pain Intensity Range: 10 Objective Objective: Neuro: B LE sensation is WNL to light touch. B patellar reflex= 2/3 Palpation: Pt is sore on the posterior aspect of B hips. No obvious deformity present. ROM: B hips are equal and WFL when compared bilaterally MMT: L hip flex= 25, abd= 45, add= 53 #F; R hip flex= 20, abd= 42, add= 17 #F TU seconds Balance/Special Test Scores Lower Extremity Functional Score: 43 Goals Goal 1:: Decrease B hip pain x 50% to aid with sleep Goal Time Frame: 4-6 Weeks Goal 2:: Increase B hip strength x 5#F to aid with stair negotiation Goal Time Frame: 4-6 Weeks Goal 3:: Pt will perform the TUG test in under 8 seconds to aid with ambulatory efficiency Goal Time Frame: 4-6 Weeks Goal 4:: I with HEP Goal Time Frame: 4-6 Weeks Rehabilitation Potential Physical Therapy Diagnosis: Pt has B hip pain, LBP, and R LE weakness secondary to R hip impingement Rehabilitation Potential: Good Anticipated Interventions Patient/Client Instruction: Educate patient on: Condition and Plan of Care For the Purpose of:: To improve self management Therapeutic Exercise to Include: Strength training, Endurance training, Balance training, Flexibilty training, Passive ROM, Active ROM and Dynamic Lumbar Stabilization For the Purpose of:: To decrease pain, To improve muscle performance and motor function and To increase tolerance to activity/condition/position Text: Thank you for the opportunity to evaluate your patient. For Medicare and Medicare HMO plans, please review the plan of care and approve it. It will need to be FAXED BACK to us at [phone] for Medicare purposes. For Medicare only, by signing this I certify the plan of care. Please let me know if there are questions or concerns regarding this plan of care. Physician Signature: Date:
--- NOTE | 2024-12-31 13:08 | HP.PTDCSUM ---
Discharge Summary D/C summary: It has been my pleasure to treat SESAR CISNEROS referred by ALANIS DARBY, with the diagnosis of B hip pain for a total of 8 visit(s). Discharge Date: Please see the following information for a summary of their discharge status. Subjective Subjective: Pt reports her pain is gone now. Pain R hip: Pain Intensity (Out of 10): 0 Objective Objective/Function: B hip IT band pain 0/10 R hip flex= 21, abd= 45, add= 25 #F; L hip flex= 24, abd= 45, add= 56 #F TUG 8 sec Pt is I with HEP Goals Goal 1:: Decrease B hip pain x 50% to aid with sleep Goal Progress: Goal Met Goal 2:: Increase B hip strength x 5#F to aid with stair negotiation Goal Progress: Goal Met Goal 3:: Pt will perform the TUG test in under 8 seconds to aid with ambulatory efficiency Goal Progress: Goal Met Goal 4:: I with HEP Goal Progress: Goal Met Plan Plan: Discharge to HEP D/C Information d/c sentence: If there are questions or concerns regarding this patient's physical therapy, please feel free to call me at [phone]. Thank you for the referral of this patient. Sincerely, Justin Bo, PT, ATC Balance/Gait/Functional tests Balance/Special Test Scores Lower Extremity Functional Score: 51
== END 2024-12-31 19:00 | disposition home or self-care (01) ==
LOC: PT 12:30
PROVIDERS: PCP Family Medicine
DX: M67.951 Unspecified disorder of synovium and tendon, right thigh (principal); M25.851 Other specified joint disorders, right hip; M67.952 Unspecified disorder of synovium and tendon, left thigh
CPT/HCPCS: 97110; 97113; 97140; 97161; 97530

== ENCOUNTER → 2025-03-18 | Outpatient (CLI) | payer OTHER, SELFPAY ==
[2025-03-18 10:10] LABS: Hematocrit 40.9 % (37-47); Hemoglobin 14.3 g/dL (12.0-15.0); Immature Granulocytes Count 0.020 X10^3/uL (0.0-0.0); Mean Corp Hgb Conc 35.0 g/dL (32-36); Mean Corpuscular Volume 92.5 fL (81-99); Mean Platelet Vol. 10.0 fl (6.2-12.0); NRBC Flagged by Analyzer 0 % (0-5); Platelet Count 226 K/mm3 (150-450); RBC Distribution Width CV 12.3 % (11.6-14.6); RBC Distribution Width SD 41.9 fl (35.1-43.9); Red Blood Count 4.42 M/mm3 (4.2-5.4); White Blood Count 6.4 K/mm3 (4.4-11.0)
[2025-03-18 11:25] LABS: Anion Gap 13 (5-15); BUN 13 mg/dL (4-19); BUN/Creat Ratio 15.2 RATIO (10-20); Calcium,Total 9.7 mg/dL (7.6-11.0); Carbon Dioxide 23.7 mmol/L (21.0-32.0); Chloride 101 mmol/L (98-108); Cholesterol 197 mg/dL (<=200); Glucose 93 mg/dL (70-99); Low Density Lipoprotein Calc. 108 mg/dL; Potassium 4.1 mmol/L (3.3-5.1); Triglycerides 107 mg/dL; Very Low Density Lipoprotein 21 mg/dL (5-40); cholesterol:hdl ratio screen 2.93
== END | disposition home or self-care (01) ==
LOC: MTLAB 07:03
PROVIDERS: PCP Family Medicine; Referring Provider Family Medicine; Visit Provider Family Medicine
DX: Z01.818 Encounter for other preprocedural examination (principal)
CPT/HCPCS: 36415; 80048; 80061; 85025

== ENCOUNTER 2025-05-31 14:30 | Outpatient (RCR) | payer OTHER, SELFPAY ==
--- NOTE | 2025-05-04 18:04 | HP.PTEVAL_ITS ---
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 Date of Evaluation: 05/04/25 Physical Therapist: Christopher Li, DPT, OCS, CSCS Visit Plan Frequency: 2x /Week Duration: 2 Months Plan: 2x/week x 8 weeks per protocol IE HEP: supine lie for hip ext to neutral, pillow squeeze 2x10, GS, QS all 2x10 2x/day, ice, appropriate WBAT gait with two crutches. treat with progression of ROM anbd sterenght per protocol ROM gently not limited at this point, care with extension. Avoid SLR, avoid excessive hip flexion stress. Strengthen hip , work on gait with decresing AD, pt is scared but WBAT at this point, work on kneeling progression in protocol ice as needed General protocol: WBAT to full weight beearing starting week 5 (05/02) Minimal pain and no gait deviaitions ROM: all planes within tolerance starting 05/02 treatmeent: Manual therapy/gentle leg pull and PROm is good, low resistance stationary bike , early start hip flexor streetch off edge of table SKC, bugs, start quadruped cat cow, hina pose gently, standing hip abd and ext, butteerfly ROM, bridges, prone IR/ER See protocol scanned in and in file Subjective Subjective: Had cam impingement adn shredded labrum so Dr. Sylvester reconfigured hip joint, shaved off bone spurs and put shavings in femur. That was April 05 4 weeks ago. is not doing bad. Pain this week constant 7/10, hard to get comfy. Also has torn HS on both sidees and gluteus max and medius is torn, L labrum is torn. All herditary. 6 surgeries on feet and ankles, no horacio sin L, no use of toes. Sleeping is not bad. struggles to get comfy but can stay asleep. Live at home with , lots of split level steps. bathroom up and down. Livees down stairs, has railings. L leg with crutches and railing. Minimizs use of steps. Basic ADLs: drsses self, bathroom I, shower walk in I tiny lip and chair. 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 office is upstairs though adn stays downstairs. Hobbies:Enjoys going for a walk. has not been comfortable for a walk in a long time. G.ho.st board. Walks with two crutches but short distances [address] HEP:None. Pain lateral hip groin R.: Pain Intensity (Out of 10): 7 Pain Intensity Range: 7 Objective Objective: Pushes self back to therapy in WC...I could never walk that far Trasnitions chair I with UE to table. Trasnition toward supine I but keeps R LE bent until cued to gradually straighten it which is painful but abkle after a few minutes. Can move R LE I on table including HS and bent leeg lift. Contraction R hip are weak but palpable and can do it. Hip PROM R 100 flexion, 45 er, 5 ir c, ir limited by pain, others stiff. L is 55 er, 110 flexion, 12 IR. Strength is 3+ abd and ext and 3 flexion. L is 4-. knees are 4-/5 R and 4 L. ankles 4 B. Walks with two crutches WBAT (minimal on R and short L step until cued.) Fearful to walk with one crutch or L railing but not more painful. Mod I with 2 crutches adn SBA with onee crutch. reflexes 2/3 patella dn achilles B Sensation B LE WNL to gross lgiht touch. Balance/Special Test Scores Lower Extremity Functional Score: 17 Goals Goal 1:: walk without AD I without gait deviations in community Goal Time Frame: 6-8 Weeks Goal 2:: steps reciprocally I without pain Goal Time Frame: 6-8 Weeks Goal 3:: I appropriate HEP to minimize future problems Goal Time Frame: 6-8 Weeks Goal 4:: Pt feel back to 90% normal activities with pain 1/10 at worst Goal Time Frame: 6-8 Weeks Goal 5:: LEFS score 55 Goal Time Frame: 6-8 Weeks Rehabilitation Potential Physical Therapy Diagnosis: weakness stiffness [facility] Rehabilitation Potential: Fair Anticipated Interventions Patient/Client Instruction: Educate patient on: Condition and Plan of Care For the Purpose of:: To decrease pain, To increase ROM, To improve nutrient delivery to tissue, To improve muscle performance and motor function, To increase tolerance to activity/condition/position, To improve ability of physical actions for home/community/work/leisure and To improve gait and locomotor functions Therapeutic Exercise to Include: Strength training, Postural training, Flexibilty training, Passive ROM and Active ROM For the Purpose of:: To decrease pain, To increase ROM, To improve muscle performance and motor function, To increase tolerance to activity/condition/position, To improve ability of physical actions for home/community/work/leisure and To improve gait and locomotor functions Manual Therapy Techniques to Include: Scar massage and Passive ROM For the Purpose of:: To increase ROM, To improve nutrient delivery to tissue and To improve muscle performance and motor function Cryotherapy (ice pack, ice massage): Yes For the Purpose of:: To decrease swelling/inflammation Text: Thank you for the opportunity to evaluate your patient. For Medicare and Medicare HMO plans, please review the plan of care and approve it. It will need to be FAXED BACK to us at [phone] for Medicare purposes. For Medicare only, by signing this I certify the plan of care. Please let me know if there are questions or concerns regarding this plan of care. Physician Signature: Date:
--- NOTE | 2025-05-31 15:07 | HP.PTREVAL ---
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 Please see the progress note below for an update on the physical therapy plan of care! Subjective Subjective: Pt denies pain at this time. Believes she is ready to continue I at this time. Objective Objective/Function: R hip pain ranges from 0-4/10 Pt now ambulates with no gait deviations or AD Pt is I with HEP No difficulty with stairs secondary to hip pain Plan Plan Plan: Follow up or discharge in one month Balance/Gait/Functional tests Balance/Special Test Scores Lower Extremity Functional Score: 58 Goals Goals Goal 1:: walk without AD I without gait deviations in community Goal Time Frame: 6-8 Weeks Goal Progress: Goal Met Goal 2:: steps reciprocally I without pain Goal Time Frame: 6-8 Weeks Goal Progress: Goal Met Goal 3:: I appropriate HEP to minimize future problems Goal Time Frame: 6-8 Weeks Goal Progress: Goal Met Goal 4:: Pt feel back to 90% normal activities with pain 1/10 at worst Goal Time Frame: 6-8 Weeks Goal Progress: Goal Met Goal 5:: LEFS score 55 Goal Time Frame: 6-8 Weeks Goal Progress: Goal Met Anticipated Interventions Anticipated Interventions Patient/Client Instruction: Educate patient on: Condition and Plan of Care For the Purpose of:: To decrease pain, To increase ROM, To improve nutrient delivery to tissue, To improve muscle performance and motor function, To increase tolerance to activity/condition/position, To improve ability of physical actions for home/community/work/leisure and To improve gait and locomotor functions Therapeutic Exercise to Include: Strength training, Postural training, Flexibilty training, Passive ROM and Active ROM For the Purpose of:: To decrease pain, To increase ROM, To improve muscle performance and motor function, To increase tolerance to activity/condition/position, To improve ability of physical actions for home/community/work/leisure and To improve gait and locomotor functions Manual Therapy Techniques to Include: Scar massage and Passive ROM For the Purpose of:: To increase ROM, To improve nutrient delivery to tissue and To improve muscle performance and motor function Cryotherapy (ice pack, ice massage): Yes For the Purpose of:: To decrease swelling/inflammation Re-Evaluation Ending Re-evaluation ending: Please do not hesitate to contact me at [phone] by phone or if you have questions or concerns regarding this new plan of care! Sincerely, Justin Bo, PT, ATC
--- NOTE | 2025-07-05 11:45 | HP.PTDCNRP_ITS ---
Patient Information Patient Information: SESAR CISNEROS was seen in my office for initial evaluation on 05/04/25. The following Plan of Care was established for this patient: POC Established Initial Frequency: 2x /Week Initial Duration: 2 Months Anticipated Interventions Patient/Client Instruction: Educate patient on: Condition and Plan of Care For the Purpose of:: To decrease pain, To increase ROM, To improve nutrient delivery to tissue, To improve muscle performance and motor function, To increase tolerance to activity/condition/position, To improve ability of phys ical actions for home/community/work/leisure and To improve gait and locomotor functions Therapeutic Exercise to Include: Strength training, Postural training, Flexibilty training, Passive ROM and Active ROM For the Purpose of:: To decrease pain, To increase ROM, To improve muscle performance and motor function, To increase tolerance to activity/cond ition/position, To improve ability of physical actions for home/community/work/leisure and To improve gait and locomotor functions Manual Therapy Techniques to Include: Scar massage and Passive ROM For the Purpose of:: To increase ROM, To improve nutrient delivery to tissue and To improve muscle performance and motor function Cryotherapy (ice pack, ice massage): Yes For the Purpose of:: To decrease swelling/inflammation Last Seen Last Seen: This patient was last seen in our office . Pertinent comments regarding their Physical therapy will appear below: Pt phoned the clinic to report she is doing well and is ready to be done. Discontinue at this time. At this point I will be discontinuing this patient from physical therapy. I would be happy to see this patient again in the future if found appropriate by the physician. Thank you! Justin Bo, PT, ATC Balance/Gait/Functional tests Balance/Special Test Scores Lower Extremity Functional Score: 58
== END 2025-05-31 19:00 | disposition home or self-care (01) ==
LOC: PT 14:30
PROVIDERS: PCP Family Medicine
DX: M24.151 Other articular cartilage disorders, right hip (principal)
CPT/HCPCS: 97110; 97162; 97530